=== PATIENT | male | born 1965 | race Caucasian/White ===

== ENCOUNTER 2022-05-31 14:25 | Emergency (ER) | payer OTHER ==
[2022-05-31 16:26] LABS: Absolute Lymphocytes (CBC) 0.5 K/uL (0.7-4.9); Hematocrit 42.7 % (39.6-49.0); Lymphocytes % 12.9 % (15.3-44.8); MCV 91.3 fL (80-100); MPV 8.1 fL (7.6-11.3); RBC Red Blood Cell Count 4.68 M/uL (4.33-5.43)
--- NOTE | 2022-05-31 16:54 | RAD REPORT ---
EXAM DESCRIPTION: RAD - Chest Pa And Lat (2 Views) - 05/31/2022 4:43 pm CLINICAL HISTORY: COUGH Chest pain. COMPARISON: No comparisons FINDINGS: The lungs are clear. The heart is normal in size. No displaced fractures. Tracheostomy tub e in expected positioning. IMPRESSION: No acute or concerning finding suspected.
[2022-05-31 16:55] LABS: ALT/SGPT 71 U/L (12-78); AST/SGOT 44 U/L (15-37); Albumin 3.7 g/dL (3.4-5.0); Alkaline Phosphatase 81 U/L (45-117); BUN Blood Urea Nitrogen 24 mg/dL (7-18); Bicarbonate 24 mmol/L (21-32); Bilirubin Total 0.3 mg/dL (0.2-1.0); Glomerular Filtration Rate 64 ml/min (=/>90); Glucose Level 104 mg/dL (74-106); Magnesium 2.2 mg/dL (1.8-2.4); Potassium 3.9 mmol/L (3.5-5.1); Protein, Total 7.9 g/dL (6.4-8.2); Sodium Level 137 mmol/L (136-145)
[2022-05-31 17:00] LABS: Bilirubin Direct < 0.1 mg/dL (0-0.2)
--- NOTE | 2022-05-31 18:12 | ER ---
Nurse's Notes [facility] Name: Washington Rose Age: 56 yrs Sex: Male : 1965 Arrival Date: 05/31/2022 Time: 14:26 Bed 18 Private MD: Diagnosis: SARS-associated coronavirus as the cause of diseases classified elsewhere;Lower abdominal pain, unspecified Presentation: 05/31 14:51 Chief complaint: Spouse and/or significant other states: been running fever , hasn't iw felt good , has a tracheostomy and chronic cough, but the cough is worse, symptoms started 2 days ago , has hx of laryngeal cancer and has a spot on his lung, has been treated with radiation. Coronavirus screen: Client presents with at least one sign or symptom that may indicate coronavirus-19. Ebola Screen: Patient negative for fever greater than or equal to 101.5 degrees Fahrenheit, and additional compatible Ebola Virus Disease symptoms Patient denies exposure to infectious person. Patient denies travel to an Ebola-affected area in the 21 days before illness onset. No symptoms or risks identified at this time. Initial Sepsis Screen: Does the patient meet any 2 criteria? RR > 20 per min. HR > 90 bpm. Does the patient have a suspected source of infection?. Risk Assessment: Do you want to hurt yourself or someone else? Patient reports no desire to harm self or others. Onset of symptoms was May 29, 2022. 14:51 Method Of Arrival: Ambulatory iw 14:51 Acuity: MURTAZA 3 iw Triage Assessment: 15:00 General: Appears in no apparent distress. comfortable, Behavior is calm, cooperative, bp appropriate for age. Pain: Denies pain. EENT: TRACHEOSTOMY. Neuro: No deficits noted. Cardiovascular: No deficits noted. Respiratory: Reports cough that is. GI: No signs and/or symptoms were reported involving the gastrointestinal system. : No signs and/or symptoms were reported regarding the genitourinary system. Derm: No deficits noted. Musculoskeletal: No deficits noted. Historical: - Allergies: 14:53 No Known Allergies; iw - Home Meds: 14:53 tramadol 50 mg Oral tab twice a day [Active]; iw - PMHx: 14:53 laryngeal cancer; iw - PSHx: 14:53 tracheostomy; iw - Immunization history:: Client reports having NOT received the Covid vaccine. - Social history:: Smoking status: Patient/guardian denies using tobacco, the patient reports quitting approximately 2 years ago. Screenin:00 Abuse screen: Denies threats or abuse. Denies injuries from another. Nutritional bp screening: No deficits noted. Tuberculosis screening: No symptoms or risk factors identified. Fall Risk None identified. Assessment: 15:00 General: SEE TRIAGE NOTE. bp 17:00 Reassessment: No changes from previously documented assessment. Patient and/or family bp updated on plan of care and expected duration. Pain level reassessed. 18:23 Reassessment: PT D/C HOME AMBULATORY WITH FAMILY, DX WITH COVID. bp Vital Signs: 14:51 BP 123 / 79; Pulse 106; Resp 24 S; Temp 99.6; Pulse Ox 93% on R/A; iw 16:00 BP 124 / 74; Pulse 96; Resp 18; Pulse Ox 97% ; bp 18:00 BP 121 / 69; Pulse 89; Resp 16; Pulse Ox 97% ; bp ED Course: 14:26 Patient arrived in ED. am2 14:28 Carmelo Blandon PA is PHCP. cp 14:28 Andrez Carrington MD is Attending Physician. cp 14:53 Triage completed. iw 14:55 Arm band placed on. iw 15:00 Patient has correct armband on for positive identification. Bed in low position. Call bp light in reach. Side rails up X2. 15:23 Tay Cooper, VASYL is Primary Nurse. bp 16:45 XRAY Chest Pa And Lat (2 Views) In Process Unspecified. EDMS 18:00 No provider procedures requiring assistance completed. Patient did not have IV access bp during this emergency room visit. Administered Medications: No medications were administered Medication: 15:00 VIS not applicable for this client. bp Outcome: 18:00 Discharged to home ambulatory, with family. bp 18:00 Condition: stable 18:00 Discharge instructions given to patient, family, Instructed on discharge instructions, follow up and referral plans. medication usage, Demonstrated understanding of instructions, follow-up care, medications, Prescriptions given X 3. 18:11 Discharge ordered by . cp 18:24 Patient left the ED. bp Signatures: Dispatcher [employer] EDMI Mackenzie Cortez RN RN iw Carmelo Blandon PA PA cp Krista Julian am2 Kenneth, Tay, RN RN bp Corrections: (The following items were deleted from the chart) 14:55 14:51 BP 123 / 79; Pulse 106bpm; Resp 24bpm; Spontaneous; iw iw
--- NOTE | 2022-05-31 18:12 | EDPHYS ---
Physician Documentation [facility] Name: Washington Rose Age: 56 yrs Sex: Male : 1965 Arrival Date: 05/31/2022 Time: 14:26 Bed 18 Private MD: ED Physician Andrez Carrington HPI: 05/31 15:20 This 56 yrs old Male presents to ER via Ambulatory with complaints of Fever. cp 15:20 The patient reports fever, not measured (subjective). cp 15:20 Onset: The symptoms/episode began/occurred yesterday. Associated signs and symptoms: cp Pertinent positives: abdominal pain, cough, Pertinent negatives: diarrhea, vomiting. Severity of symptoms: in the emergency department the symptoms are unchanged despite home interventions. 15:20 Patient with history of laryngeal cancer and reports recently informed about concern cp for lung mass. Not currently receiving chemo and/or radiation treatment. Historical: - Allergies: 14:53 No Known Allergies; iw - Home Meds: 14:53 tramadol 50 mg Oral tab twice a day [Active]; iw - PMHx: 14:53 laryngeal cancer; iw - PSHx: 14:53 tracheostomy; iw - Immunization history:: Client reports having NOT received the Covid vaccine. - Social history:: Smoking status: Patient/guardian denies using tobacco, the patient reports quitting approximately 2 years ago. ROS: 15:25 Constitutional: Positive for body aches, Negative for fever, poor PO intake. cp 15:25 Eyes: Negative for injury, pain, redness, and discharge. cp 15:25 ENT: Negative for ear pain, difficulty swallowing, difficulty handling secretions. 15:25 Cardiovascular: Negative for chest pain, palpitations. 15:25 Respiratory: Positive for cough, shortness of breath, Negative for wheezing. 15:25 Abdomen/GI: Positive for abdominal pain, nausea, Negative for vomiting, diarrhea, constipation. 15:25 : Negative for urinary symptoms. 15:25 Neuro: Negative for altered mental status, headache, weakness. 15:25 All other systems are negative. Exam: 15:30 Constitutional: The patient appears in no acute distress, alert, awake, cp non-diaphoretic, non-toxic, well developed, well nourished, obviously ill. 15:30 Head/Face: Normocephalic, atraumatic. cp 15:30 Eyes: Periorbital structures: appear normal, Conjunctiva: normal, no exudate, no injection, Sclera: no appreciated abnormality, Lids and lashes: appear normal, bilaterally. 15:30 ENT: External ear(s): are unremarkable, Ear canal(s): are normal, clear, TM's: dullness, bilaterally, Nose: is normal, Mouth: Lips: dry, Oral mucosa: moist, Posterior pharynx: Airway: normal, no evidence of obstruction. 15:30 Neck: Trachea: tracheostomy in place. ROM/movement: is normal, is supple, without pain, no range of motions limitations, no meningismus. 15:30 Chest/axilla: Inspection: normal, Palpation: is normal, no crepitus, no tenderness. 15:30 Cardiovascular: Rate: tachycardic, Rhythm: regular, Edema: is not appreciated, JVD: is not appreciated. 15:30 Respiratory: the patient does not display signs of respiratory distress, Respirations: normal, no use of accessory muscles, no retractions, Breath sounds: are clear throughout, no decreased breath sounds, no stridor, no wheezing. 15:30 Abdomen/GI: Inspection: obese Bowel sounds: active, all quadrants, Palpation: soft, in all quadrants, mild abdominal tenderness, in the right lower quadrant and left lower quadrant, rebound tenderness, is not appreciated, involuntary guarding, is not appreciated. 15:30 Back: pain, is absent, ROM is normal. 15:30 Skin: cellulitis, is not appreciated, no rash present. 15:30 Neuro: Orientation: to person, place \\T\\ time. Mentation: is normal, Motor: moves all fours, strength is normal, Sensation: is normal. 15:45 ECG was reviewed by the Attending Physician. Vital Signs: 14:51 BP 123 / 79; Pulse 106; Resp 24 S; Temp 99.6; Pulse Ox 93% on R/A; iw 16:00 BP 124 / 74; Pulse 96; Resp 18; Pulse Ox 97% ; bp 18:00 BP 121 / 69; Pulse 89; Resp 16; Pulse Ox 97% ; bp MDM: 15:28 Patient medically screened. cp 18:06 Data reviewed: vital signs, nurses notes, lab test result(s), radiologic studies, plain cp films. Refusal of service: The patient/guardian displays adequate decision making capability and despite a detailed discussion of alternatives, benefits, risks, and consequences refuses: CT Scan. ED course: Patient declines any further testing at this time and requests discharge. Patient appears non-toxic and no signs of respiratory distress. 05/31 15:17 Order name: COVID-19 SARS RT PCR (Document "Date of Onset" if Symptomatic); Complete cp Time: 18:08 05/31 18:10 Interpretation: Reviewed. 05/31 15:17 Order name: Influenza Screen (a \\T\\ B); Complete Time: 16:58 05/31 17:42 Interpretation: Reviewed. 05/31 15:17 Order name: Strep; Complete Time: 16:58 05/31 15:17 Order name: Basic Metabolic Panel; Complete Time: 17:42 05/31 17:42 Interpretation: Normal except: BUN 24; GFR 64. 05/31 15:17 Order name: CBC with Diff; Complete Time: 16:58 05/31 16:59 Interpretation: Normal except: WBC 4.0; LYM% 12.9; MN% 21.4; LYMA 0.5. 05/31 15:17 Order name: LFT's; Complete Time: 17:42 05/31 17:42 Interpretation: Normal except: AST 44; GLOB 4.2; A/G 0.9. 05/31 15:17 Order name: XRAY Chest Pa And Lat (2 Views); Complete Time: 16:58 05/31 15:17 Order name: Magnesium; Complete Time: 17:42 05/31 17:43 Interpretation: Reviewed. 05/31 15:17 Order name: Procalcitonin; Complete Time: 17:42 05/31 17:42 Interpretation: Reviewed. 05/31 15:17 Order name: Blood Culture Adult (2) cp 05/31 15:17 Order name: Lactate; Complete Time: 16:58 05/31 16:38 Order name: Throat Culture EDWA 05/31 15:17 Order name: EKG; Complete Time: 15:19 05/31 15:17 Order name: Cardiac monitoring; Complete Time: 16:04 05/31 15:17 Order name: EKG - Nurse/Tech; Complete Time: 16:04 05/31 15:17 Order name: Labs collected and sent; Complete Time: 16:04 cp 05/31 15:17 Order name: O2 Per Protocol; Complete Time: 16:04 cp 05/31 15:17 Order name: O2 Sat Monitoring; Complete Time: 15:28 cp EC:45 Rate is 96 beats/min. Rhythm is regular. SD interval is normal. QRS interval is normal. cp QT interval is normal. T waves are Inverted in lead aVR. Interpreted by me. Reviewed by me. Administered Medications: No medications were administered Disposition: 06/01 15:50 Co-signature as Attending Physician, Carmelo LAUGHLIN. [email or web address] Disposition Summary: 05/31/22 18:11 Discharge Ordered Location: Home cp Problem: new cp Symptoms: are unchanged cp Condition: Stable cp Diagnosis - SARS-associated coronavirus as the cause of diseases classified elsewhere cp - Lower abdominal pain, unspecified cp Followup: cp - With: Private Physician - When: 1 - 2 days - Reason: Worsening of condition Discharge Instructions: - Discharge Summary Sheet cp - Abdominal Pain, Adult cp - Aspirin and Your Heart cp - COVID-19 cp - COVID-19: What Your Test Results Mean [place] [facility] cp - Things to Know about the COVID-19 Pandemic - [facility] [place] cp - 10 Things You Can Do to Manage Your COVID-19 Symptoms at Home - [facility] [place] cp - COVID-19: Quarantine vs. Isolation - [facility] [place] cp - Prevent the Spread of COVID-19 if You Are Sick - [facility] [place] 2[place] cp Forms: - Medication Reconciliation Form cp - Thank You Letter cp - Antibiotic Education cp - Prescription Opioid Use cp Prescriptions: - Bromfed DM 2-30-10 mg/5 mL Oral syrup - take 10 milliliter by ORAL route every 6 hours; 180 milliliter; Refills: 0, cp Product Selection Permitted - PAXLOVID - take 3 tablet by ORAL route 2 times per day for 5 days; 30 tablet; Refills: 0, cp Product Selection Permitted - Zithromax Z-Dom 250 mg Oral Tablet - take 1 tablet by ORAL route as directed for 5 days Day 1 - take two (2) tablets cp one time. Day 2, 3, 4 , 5 take one (1) tablet once daily.; 6 tablet; Refills: 0, Product Selection Permitted Signatures: Dispatcher [employer] EDMackenzie Glover RN RN iw Page, Corey, PA PA cp Rosillo, Jose, MD MD [id number] Corrections: (The following items were deleted from the chart) 05/31 18:10 17:00 Abdomen Pelvis W Con+CT.RAD.BRZ ordered. EDMS EDMS
[2022-05-31 18:31] VITALS: TEMP 99.6
[2022-05-31 18:32] VITALS: O2SAT 97
[2022-05-31 18:35] VITALS: BP 121/69
--- NOTE | 2022-06-02 09:05 | EKG ---
Test Date: 2022-05-31 Test Time: 15:40:55 Aluminum Can Collector: KAVYA MEASUREMENT RESULTS: Intervals: Rate: 96 OH: 134 QRSD: 78 QT: 340 QTc: 429 [place]: P: 60 OH: 134 QRS: 38 T: 38 INTERPRETIVE STATEMENTS: Normal sinus rhythm Cannot rule out Anterior infarct, age undetermined Abnormal ECG No previous ECG available for comparison Electronically Signed On 06-02-22 09:03:08 CDT by Hermes Staley
== END 2022-05-31 18:24 | disposition home or self-care (01) ==
LOC: ER 14:25
DX: U07.1 COVID-19 (principal); R10.30 Lower abdominal pain, unspecified; Z85.21 Personal history of malignant neoplasm of larynx
CPT/HCPCS: 93005; 87040 ×2; 87070; 85025; 80048; 36415; 83735; 80076; 87081; 83605; 84145; 87804 ×2; 71046; 99283; U0003

== ENCOUNTER 2022-06-06 10:19 | Emergency (ER) | payer OTHER ==
[2022-06-06 11:30] LABS: Absolute Lymphocytes (CBC) 2.4 K/uL (0.7-4.9); Hematocrit 35.9 % (39.6-49.0); Lymphocytes % 30.2 % (15.3-44.8); MCV 84.5 fL (80-100); MPV 9.9 fL (7.6-11.3); RBC Red Blood Cell Count 4.25 M/uL (4.33-5.43)
[2022-06-06 11:43] LABS: Albumin 3.6 g/dL (3.4-5.0); Bilirubin Total 0.6 mg/dL (0.2-1.0); Potassium 4.2 mmol/L (3.5-5.1); Protein, Total 7.7 g/dL (6.4-8.2)
--- NOTE | 2022-06-06 12:31 | RAD REPORT ---
EXAM DESCRIPTION: CTAbdomen Pelvis W Contrast - 06/06/2022 12:12 pm CLINICAL HISTORY: Abdominal pain. LUQ abdominal pain COMPARISON: Ct Skull/Thigh dated 02/01/2022 TECHNIQUE: Biphasic CT imaging of the abdomen and pelvis was performed with 100 ml non-ionic IV cont rast. All CT scans are performed using dose optimization technique as appropriate and may include automated exposure control or mA/KV adjustment according to patient size. FINDINGS: The lung bases are clear.Gastrostomy tube noted. The liver, spleen, pancreas, adrenal glands and kidneys are within normal limits. 5 mm stone is prese nt inferior right kidney. Small bilateral renal cysts. No bowel obstruction, free air, free fluid or abscess. Small fat containing umbilical hernia. The robyn endix is normal. No evidence of significant lymphadenopathy. No suspicious bony findings. IMPRESSION: No acute intra-abdominal or pelvic finding. Nonobstructing right renal calculus.
--- NOTE | 2022-06-06 12:48 | EDPHYS ---
Physician Documentation [facility] Name: Washington Rose Age: 56 yrs Sex: Male : 1965 Arrival Date: 06/06/2022 Time: 10:34 Bed 6 Private MD: ED Physician Akbar Welch HPI: 06/06 12:49 This 56 yrs old Male presents to ER via EMS with complaints of LUQ abdominal pain. ms3 12:49 The patient presents with abdominal pain in the left upper quadrant. Onset: The ms3 symptoms/episode began/occurred yesterday. The symptoms do not radiate. Associated signs and symptoms: Pertinent positives: nausea. The symptoms are described as nausea. Modifying factors: The symptoms are alleviated by nothing, the symptoms are aggravated by nothing. Severity of pain: At its worst the pain was moderate in the emergency department the pain is unchanged is a 4 / 10. EMS administered 4 mg Zofran enroute. Historical: - PMHx: 11:00 Laryngeal Cancer; kr3 - PSHx: 11:00 tracheostomy; g-tube; kr3 - Immunization history:: Adult Immunizations up to date. - Social history:: Smoking status: Patient/guardian denies using tobacco. ROS: 12:49 Constitutional: Negative for fever, and chills. ENT: Negative for injury, pain, and ms3 discharge, Neck: Negative for injury, pain, and swelling, Cardiovascular: Negative for chest pain, and palpitations. Respiratory: Negative for shortness of breath, cough, wheezing, and pleuritic chest pain. 12:49 Skin: Negative for injury, rash, and discoloration, Neuro: Negative for headache, weakness, numbness, tingling. Psych: Negative for depression, anxiety, suicide ideation, homicidal ideation, and hallucinations. 12:49 Abdomen/GI: Positive for abdominal pain, nausea. Exam: 12:49 Constitutional: This is a well developed, well nourished patient who is awake, alert, ms3 and in no acute distress. Head/Face: Normocephalic, atraumatic. ENT: Nares patent. No nasal discharge, no septal abnormalities noted. Tympanic membranes are normal and external auditory canals are clear. Oropharynx with no redness, swelling, or masses, exudates, or evidence of obstruction, uvula midline. Mucous membranes moist. Neck: Trachea midline, no cervical lymphadenopathy. Supple, full range of motion without nuchal rigidity, or vertebral point tenderness. No Meningismus. Chest/axilla: Normal chest wall appearance and motion. Nontender with no deformity. Cardiovascular: Regular rate and rhythm with a normal S1 and S2. No gallops, murmurs, or rubs. Normal PMI, no JVD. No pulse deficits. Respiratory: Lungs have equal breath sounds bilaterally, clear to auscultation and percussion. No rales, rhonchi or wheezes noted. No increased work of breathing, no retractions or nasal flaring. Skin: Warm, dry with normal turgor. Normal color with no rashes, no lesions, and no evidence of cellulitis. Psych: Awake, alert, with orientation to person, place and time. Behavior, mood, and affect are within normal limits. 12:49 Abdomen/GI: Inspection: PEG in LUQ, Bowel sounds: normal, Palpation: abdomen is soft and non-tender. Vital Signs: 10:40 BP 121 / 74; Pulse 88; Resp 16; Temp 97.7; Pulse Ox 99% on R/A; kr3 12:17 BP 110 / 64; Pulse 101; Resp 18; Pulse Ox 98% on R/A; kr3 13:03 BP 120 / 86; Pulse 83; Resp 17; Pulse Ox 98% ; ll1 MDM: 10:34 Patient medically screened. ms3 12:52 Differential diagnosis: gastritis, gastroesophageal reflux disease, non-specific abd ms3 pain. Data reviewed: vital signs, nurses notes, lab test result(s), radiologic studies, and as a result, I will discharge patient. Data interpreted: Pulse oximetry: on room air is 98 %. Interpretation: normal. Counseling: I had a detailed discussion with the patient and/or guardian regarding: the historical points, exam findings, and any diagnostic results supporting the discharge/admit diagnosis, lab results, radiology results, the need for outpatient follow up, to return to the emergency department if symptoms worsen or persist or if there are any questions or concerns that arise at home. ED course: On reevaluation patient symptoms improved, patient is alert and oriented x4, no apparent distress, nontoxic, ambulatory in emergency department. . 06/06 10:35 Order name: CBC with Diff; Complete Time: 11:45 ms3 07/20 10:35 Order name: CMP; Complete Time: 11:45 ms3 06/06 10:35 Order name: Lipase; Complete Time: 11:45 ms3 06/06 10:35 Order name: CT Abd/Pelvis - IV Contrast Only; Complete Time: 12:42 ms3 06/06 10:36 Order name: IV Saline Lock; Complete Time: 11:23 ms3 06/06 10:36 Order name: Labs collected and sent; Complete Time: 11:23 ms3 Administered Medications: 13:05 Not Given (given RX): Pepcid (famotidine) 20 mg PO once ll1 Disposition Summary: 06/06/22 12:47 Discharge Ordered Location: Home ms3 Condition: Stable ms3 Diagnosis - Abdominal pain, unspecified ms3 Followup: ms3 - With: Private Physician - When: 1 - 2 days - Reason: Re-evaluation by your physician Discharge Instructions: - Discharge Summary Sheet ms3 - Abdominal Pain, Adult ms3 Forms: - Medication Reconciliation Form ms3 - Thank You Letter ms3 - Antibiotic Education ms3 - Prescription Opioid Use ms3 Prescriptions: - Pepcid 20 mg Oral Tablet - take 1 tablet by ORAL route every 12 hours for 5 days; 10 tablet; Refills: 0, ms3 Product Selection Permitted Signatures: Dispatcher [employer] Akbar Floyd DO DO ms3 Gia Goodman RN RN kr3 Caitlin Amato RN ll1
--- NOTE | 2022-06-06 12:48 | ER ---
Nurse's Notes [facility] Name: Washington Rose Age: 56 yrs Sex: Male : 1965 Arrival Date: 06/06/2022 Time: 10:34 Bed 6 Private MD: Diagnosis: Abdominal pain, unspecified Presentation: 06/06 10:40 Initial Sepsis Screen: Does the patient meet any 2 criteria? No. Patient's initial kr3 sepsis screen is negative. Does the patient have a suspected source of infection? Yes: Acute abdominal pain. Risk Assessment: Do you want to hurt yourself or someone else? Patient reports no desire to harm self or others. Onset of symptoms was June 03, 2022. 10:40 Acuity: MURTAZA 3 kr3 10:54 Chief complaint: Patient states: abd pain x 3 days, N/V/D, generalized weakness. kr3 Coronavirus screen: Client denies travel out of the [place] in the last 14 days. diarrhea, fatigue, nausea, vomiting. Client reports previous positive COVID test result. Ebola Screen: Patient denies travel to an Ebola-affected area in the 21 days before illness onset. 10:54 Method Of Arrival: EMS kr3 Triage Assessment: 10:58 General: Appears in no apparent distress. comfortable, Behavior is calm, cooperative, kr3 communicates via cell phone secondary to trach.. Pain: Denies pain. GI: Reports lower abdominal pain, upper abdominal pain, diarrhea, nausea, vomiting. Historical: - PMHx: 11:00 Laryngeal Cancer; kr3 - PSHx: 11:00 tracheostomy; g-tube; kr3 - Immunization history:: Adult Immunizations up to date. - Social history:: Smoking status: Patient/guardian denies using tobacco. Screenin:04 Abuse screen: Denies threats or abuse. Nutritional screening: No deficits noted. ll1 Tuberculosis screening: No symptoms or risk factors identified. Fall Risk IV access (20 points). Total Aguirre Fall Scale indicates No Risk (0-24 pts). Assessment: 12:16 Reassessment: No changes from previously documented assessment. Patient and/or family bm7 updated on plan of care and expected duration. Pain level reassessed. 13:03 Reassessment: No changes from previously documented assessment. Patient and/or family ll1 updated on plan of care and expected duration. Pain level reassessed. Patient is alert, oriented x 3, equal unlabored respirations, skin warm/dry/pink. Vital Signs: 10:40 BP 121 / 74; Pulse 88; Resp 16; Temp 97.7; Pulse Ox 99% on R/A; kr3 12:17 BP 110 / 64; Pulse 101; Resp 18; Pulse Ox 98% on R/A; kr3 13:03 BP 120 / 86; Pulse 83; Resp 17; Pulse Ox 98% ; ll1 ED Course: 10:34 Patient arrived in ED. ms3 10:34 Akbar Welch DO is Attending Physician. ms3 10:52 Gia Goodman, RN is Primary Nurse. kr3 10:58 Triage completed. kr3 11:16 Missed attempt(s): 22 gauge in left forearm. kr3 11:18 Missed attempt(s): 22 gauge in left antecubital area. Bleeding controlled, band aid ll1 applied, catheter tip intact. 11:21 Inserted saline lock: 22 gauge in right forearm, using aseptic technique. Blood ll1 collected. 11:22 Primary Nurse role handed off by Gia Goodman, RN bd 11:26 Gia Goodman, RN is Primary Nurse. kr3 12:00 CT Abd/Pelvis - IV Contrast Only In Process Unspecified. EDMS 13:01 IV discontinued, intact, bleeding controlled, No redness/swelling at site. Pressure ll1 dressing applied. 13:03 No provider procedures requiring assistance completed. ll1 13:04 Arm band placed on. ll1 13:05 Patient has correct armband on for positive identification. Bed in low position. Call ll1 light in reach. Client placed on continuous cardiac and pulse oximetry monitoring. NIBP monitoring applied. Administered Medications: 13:05 Not Given (given RX): Pepcid (famotidine) 20 mg PO once ll1 Medication: 13:04 VIS not applicable for this client. ll1 Outcome: 12:47 Discharge ordered by . ms3 13:04 Discharged to home ambulatory. ll1 13:04 Condition: stable 13:04 Discharge instructions given to patient, Instructed on discharge instructions, follow up and referral plans. medication usage, Demonstrated understanding of instructions, follow-up care, medications, Prescriptions given X 1. 13:21 Patient left the ED. kr3 Signatures: Dispatcher [employer] EDMS Florinda Vargas Lynsay, RN RN ll1 Rebekah, Akbar, DO DO ms3 Jenna Mae, VASYL RN bm7 Mercy Prakash RN RN jg9 Gia Goodman RN RN kr3 Corrections: (The following items were deleted from the chart) 11:25 11:16 Missed attempt(s): 22 gauge in left forearm. jg9 jg9 12:17 12:14 BP 110 / 64; Pulse 101bpm; Resp 16bpm; Pulse Ox 99% RA; bm7 bm7
[2022-06-06 14:06] VITALS: TEMP 97.7
[2022-06-06 14:08] VITALS: O2SAT 98
[2022-06-06 14:10] VITALS: BP 120/86
--- OUTSIDE RECORDS SUMMARY | 2022-06-07 15:27 | XMS REPORT | Continuity of Care Document ---
:1965 Author Organization [facility] t Address [address] [place] [address] Care Team Providers Name Role Phone Verna VIZCARRA Primary Care Physician Hari Attending Clinician Unavailable Brandon DAMICO Attending Clinician Ran GÓMEZ Attending Clinician DONAVAN Attending Clinician Unavailable Joan Lynn Attending Clinician [phone] Jose Angel DAMICO Attending Clinician ROMMEL VELA Attending Clinician Unavailable Hari Admitting Clinician Unavailable DONAVAN Admitting Clinician Unavailable ROMMEL VELA Admitting Clinician Unavailable Payers Payer Name Policy Type Policy Number Effective Date Expiration Date [facility] [id number] 2021 [employer] [place] 00:00:00 (MEDICAID HMO) Problems Condition Condition Condition Status Onset Resolution Last Treating Co mments Source Name Details Category Date Date Treatment Clinician Date Lung Lung Disease Active Overview: Univer s nodule nodule 2-15 Formattin ity of 00:00: g of this [place] 00 note Medical might be Branch different from the original. 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 Social History Social Habit Start Date Stop Date Quantity Comments Source History of tobacco Cigarette Smoker University of use [facility] Cigarette 2020-10-27 2020-10-27 University of pack-years 00:00:00 00:00:00 [facility] Tobacco use and 2020-10-27 2020-10-27 Never used Universit y of exposure 00:00:00 00:00:00 [facility] Cigarettes smoked 2020-10-27 2020-10-27 Univers ity of current (pack per 00:00:00 00:00:00 ) - Reported Branch Sex Ass[birth year] Universit y of 00:00:00 00:00:00 [facility] Smoking Status Start Date Stop Date Source Former smoker 2020-10-27 00:00:00 2020-10-27 00:00:00 Universi ty of [facility] Social History 2020-06-24 03:06:02 [facility] Medications Ordered Filled Start Stop Current Ordering Indication Dosage Frequency Signature Comments Components Source Medication Medication Date Date Medication? Clinician (SIG) Name Name traMADoL 50 Yes tramadol Un donavan mg tablet 3-02 50 mg ity of 11:54: tablet TAKE 1 Medical TABLET BY Branch MOUTH TWICE DAILY NEEDED FOR PAIN traMADoL 50 Yes tramadol Un donavan mg tablet 3-02 50 mg ity of 11:54: tablet TAKE 1 Medical TABLET BY Branch MOUTH TWICE DAILY NEEDED FOR PAIN Docusate 0 No Notes: [facility]oria Sodium 50 06-24 (Same as l MG / 14:00: Senokot-S) sennosides, 00 Equiv. to RETIREMENT 8.6 MG Carolyn-Colac Oral Tablet e. Enoxaparin No Notes: Memor ia 06-24 (Same as: l 04:00: Lovenox) Iohexol No 75 mL, Memoria 06-23 Route: l 22:33: IVP, Drug Form: SOLN, Dosing Weight 72.727, kg, ONCALL, STAT, Start date: 06/23/20 17:33:00 CDT, Duration: 1 doses or times, Dose = 2.2ml/kg, Max dose = 100ml -- "To be infused by Radiology Staff ONLY" Acetaminoph No Notes: Do M emoria en 06-23 not exceed l 17:00: 4 gm/day. (Same as: Tylenol) phenylephri No Route: IV, Memoria ne (ANES) 06-23 Drug form: l 16:05: INJ, ONCE, Stop date: 06/23/20 11:05:00 CDT propofol 0 No Route: IV, Mem oria (ANES) 06-23 Drug form: l 16:00: INJ, ONCE, Stop date: 06/23/20 11:00:00 CDT Tramadol 0 No Notes: Not Mem oria 06-23 to exceed l 15:58: 400mg/day. (Same As: Ultram) glycopyrrol No Route: IV, Memoria ate (ANES) 06-23 Drug form: l 15:40: INJ, ONCE, Stop date: 06/23/20 10:40:00 CDT ceFAZolin No Route: IV, Me moria (ANES) 06-23 Drug form: l 15:40: INJ, ONCE, Stop date: 06/23/20 10:40:00 CDT midazolam 2019-0 No Route: IV, Me moria (ANES) 06-23 Drug form: l 15:35: SOLN, ONCE, Stop date: 06/23/20 10:35:00 CDT fentaNYL 2020-0 No Route: IV, Mem oria (ANES) 06-23 Drug form: l 15:35: INJ, ONCE, Stop date: 06/23/20 10:35:00 CDT dexmedetomi 2020-0 No Route: IV, Memoria dine (ANES) 06-23 Drug form: l 15:35: INJ, ONCE, Stop date: 06/23/20 10:35:00 CDT metoprolol 2019-0 No Route: IV, M emoria (ANES) 06-23 Drug form: l 15:35: INJ, ONCE, Stop date: 06/23/20 10:35:00 CDT Lactated 2019-0 No Route: IV, Mem oria Ringers 06-23 Total l Injection 14:45: Volume: Cait nn IV (ANE) 1,000, 1000 mL Start date: 06/23/20 9:45:00 CDT, Stop date: 06/23/20 10:45:00 CDT Iohexol 2019-0 No 100 mL, Memoria 06-23 Route: l 11:12: IVP, Drug Form: SOLN, Dosing Weight 72.727, kg, ONCALL, STAT, Start date: 06/23/20 6:12:00 CDT, Duration: 1 doses or times, Dose = 2.2ml/kg, Max dose = 100ml -- "To be infused by Radiology Staff ONLY" tramadol 50 tramadol 50 No tramadol [place] mg tablet mg tablet 50 mg da TAKE 1 TAKE 1 tablet Medical TABLET BY TABLET BY TAKE 1 Rukhsana up MOUTH TWICE MOUTH TWICE TABLET BY DAILY DAILY MOUTH NEEDED NEEDED TWICE DAILY NEEDED Vital Signs Vital Name Observation Time Observation Value Comments Source BP Diastolic 2022-03-21 00:00:00 85 mm[Hg] [facility] Height 2022-03-21 00:00:00 67 [in_i] [facility] BMI (Body Mass 2022-03-21 00:00:00 28.4 kg/m2 [facility] Medical Index) Group BP Systolic 2022-03-21 00:00:00 126 mm[Hg] [facility] Body Weight 2022-03-21 00:00:00 181.2 [lb_av] [facility] BP Diastolic 2021-10-31 00:00:00 80 mm[Hg] [facility] Height 2021-10-31 00:00:00 67 [in_i] [facility] BMI (Body Mass 2021-10-31 00:00:00 23.6 kg/m2 [facility] Medical Index) Group BP Systolic 2021-10-31 00:00:00 117 mm[Hg] [facility] Body Weight 2021-10-31 00:00:00 151 [lb_av] [facility] BP Diastolic 2021-09-14 00:00:00 74 mm[Hg] [facility] Height 2021-09-14 00:00:00 67 [in_i] [facility] BMI (Body Mass 2021-09-14 00:00:00 22 kg/m2 [facility] Medical Index) Group BP Systolic 2021-09-14 00:00:00 109 mm[Hg] [facility] Body Weight 2021-09-14 00:00:00 140.6 [lb_av] [facility] BP Diastolic 2021-07-25 00:00:00 76 mm[Hg] [facility] Height 2021-07-25 00:00:00 67 [in_i] [facility] BMI (Body Mass 2021-07-25 00:00:00 20 kg/m2 [facility] Medical Index) Group BP Systolic 2021-07-25 00:00:00 119 mm[Hg] [facility] Body Weight 2021-07-25 00:00:00 127.7 [lb_av] [facility] Height 2021 00:00:00 67 [in_i] [facility] BMI (Body Mass 2021 00:00:00 19.8 kg/m2 [facility] Medical Index) Group BP Systolic 2021 00:00:00 104 mm[Hg] [facility] Body Weight 2021 00:00:00 126.3 [lb_av] [facility] BP Diastolic 2021 00:00:00 70 mm[Hg] [facility] Systolic (mm Hg) 2020-06-29 17:54:00 Ruddy rial [facility] Diastolic (mm Hg) 2020-06-29 17:54:00 Mem [facility] Heart Rate 2020-06-29 17:54:00 [facility] Temperature Oral (F) 2020-06-29 17:54:00 98.3 F [facility] Respitory Rate 2020-06-29 17:54:00 Memori al [place] Diastolic (mm Hg) 2020-06-29 14:09:00 Mem orial [place] Heart Rate 2020-06-29 14:09:00 [facility] Temperature Oral (F) 2020-06-29 14:09:00 98.7 F [facility] Respitory Rate 2020-06-29 14:09:00 Memori al [place] Systolic (mm Hg) 2020-06-29 14:09:00 Ruddy rial [place] Respitory Rate 2020-06-29 13:55:00 Memori al [place] Temperature Oral (F) 2020-06-29 09:12:00 98.2 F [facility] [place] Systolic (mm Hg) 2020-06-29 09:12:00 Ruddy rial [place] Diastolic (mm Hg) 2020-06-29 09:12:00 Mem orial [place] Respitory Rate 2020-06-27 07:00:00 Memori al [place] Systolic (mm Hg) 2020-06-27 07:00:00 Ruddy rial [place] Diastolic (mm Hg) 2020-06-27 07:00:00 Mem orial [place] Respitory Rate 2020-06-27 06:00:00 Memori al [place] Systolic (mm Hg) 2020-06-27 06:00:00 Ruddy rial [place] Diastolic (mm Hg) 2020-06-27 06:00:00 Mem orial [place] Respitory Rate 2020-06-27 05:00:00 Memori al [place] Systolic (mm Hg) 2020-06-27 05:00:00 Ruddy rial [place] Diastolic (mm Hg) 2020-06-27 05:00:00 Mem orial [place] Temperature Oral (F) 2020-06-26 13:00:00 97 F [facility] [place] Temperature Oral (F) 2020-06-24 13:11:00 97.5 F Tonya [place] Height 2020-06-23 08:26:00 170.18 cm [facility] [place] BMI Calculated 2020-06-23 08:26:00 Abdiel Jolly Weight 2020-06-23 08:26:00 [facility] Heart Rate 2020-06-23 08:26:00 [facility] [place] Temperature Oral (F) 2020-06-23 08:26:00 98.3 F [facility] Procedures Procedure Date / Time Performing Clinician Source Performed [facility]ion [facility] Percutaneous Endoscopic [facility] Encounters Start End Encounter Admission Attending Care Care Encounter Source Date/Time Date/Time Type Type Clinicians Facility Department ID 2022-03-21 2022-03-21 [place] [id number] [facility] 10:12:00 10:12:00 0504 Medical Group 2022-03-21 2022-03-21 SHEN Johnson [place] - [id number] [facility] 00:00:00 00:00:00 MD: Saúl Ware [facility] [address], [facility], Otolaryngol [facility] [address] , Ph. 2022-03-02 2022-03-02 Telephone Brandon [facility] [id number] Univers 00:00:00 00:00:00 Sarah HEALTH [id number] [id number] [id number] [facility] 144 Branch 2022-03-02 2022-03-02 Telephone MIKE Tong [id number] Univers 00:00:00 00:00:00 Shiwan Y HEALTH [id number] i ty [place] CL[id number] [id number] [facility] omar 083 Branch 2021-10-31 2021-10-31 Outpatient Alexander_Hoa GOTTI [id number] [place] 03:52:00 03:52:00 1214 Medical Group 2021-10-31 2021-10-31 Outpatient Yan_W MMG MMG [id number] [place] 03:52:00 03:52:00 1215 [facility] 2021-10-31 2021-10-31 Outpatient Yan_W MMG MMG [id number] [place] 03:52:00 03:52:00 1217 [facility] 2021-10-31 2021-10-31 Outpatient Yan_W MMG MMG [id number] [place] 03:52:00 03:52:00 0427 [facility] 2021-10-31 2021-10-31 SHEN Johnson [place] - [id number] [facility] 00:00:00 00:00:00 MD: Saúl [facility] Suite [facility], [facility], Otolaryngol [place] [address] , Ph. 2021-09-14 2021-09-14 [place] [id number] [place] 09:51:00 09:51:00 1028 Medical Group 2021-09-14 2021-09-14 SHEN Johnson [place] - [id number] [facility] 00:00:00 00:00:00 : Saúl [facility] [address] [facility], [facility], [place]aryng[place] [address] , Ph. 2021-07-25 2021-07-25 Outpatient Yan_W MM DCG [id number] [place] 04:36:00 04:36:00 0907 [facility] 2021-07-25 2021-07-25 Outpatient Yan_W MM MMG [id number] [place] 04:36:00 04:36:00 0909 [facility] 2021-07-25 2021-07-25 SHEN Johnson [place] - [id number] [facility] 00:00:00 00:00:00 : Saúl [facility] [address] , Ph. 2021 2021 Outpatient Yan_W [facility] [id number] [place] 03:48:00 03:48:00 0830 [facility] 2021 2021 Outpatient Yan_W [facility] [id number] [place] 03:48:00 03:48:00 0831 [facility] 2021 2021 Will Munoz MMG [place] - [id number] [place] 00:00:00 00:00:00 : Saúl Ware [facility] [address], [facility], Otolaryngol [place] [address] , Ph. 2021-06-13 2021-06-13 Outpatient Yan_W [facility] [id number] [place] 04:38:00 04:38:00 0727 Medical [facility] 2021-02-10 2021-02-10 Outpatient KOVACEV_T [facility] [id number] [place] 04:37:00 04:37:00 0326 [facility] 2021-02-02 2021-02-02 Outpatient KOVACEV_T [facility] [id number] [place] 02:37:00 02:37:00 0318 [facility] 2021-02-02 2021-02-02 Outpatient Kosusanne, [facility] [id number] 00:00:00 00:00:00 Efren [id number] Franco [id number] 2021-02-01 2021-02-01 Outpatient KOVACEV_T [facility] [id number] [place] 06:07:00 06:07:00 0317 [facility] 2020-12-21 2020-12-21 Office ELLA Walter [id number] 12:27:55 14:01:10 Visit Reece Nicole.1.13.10 [facility] [id number] 2020-06-23 2020-06-[address] [facility] [id number] Memoria 08:26:00 22:15:00 r [facility] [place] 2020-06-23 2020-06-29 Inpatient E DANE, [facility] [address] [facility] 02:19:00 17:15:00 SAYRA Results Test Description Test Time Test Comments Results Result Sourc e Comments IMMUNOLOGY 2020-06-23 24.1 [facility] 17:48:00 [place] CHEM PANEL 2020-06-23 2.1 [facility] 17:48:00 [place] CHEM PANEL 2020-06-23 2.9 [facility] 17:48:00 [place] IMMUNOLOGY 2020-06-23 <2.9 [facility] 17:48:00 [place] IMMUNOLOGY 2020-06-23 Not Detected [facility] 12:30:00 (06/23/20 7:30 [place] AM) BLOOD BANK RESULTS 2020-06-23 Negative Memori al 09:02:00 (06/23/20 4:02 [place] AM) CHEM PANEL 2020-06-23 131 [facility] 09:02:00 [place] CHEM PANEL 2020-06-23 18 [facility] 09:02:00 [facility] CHEM PANEL 2020-06-23 1.11 Memorial 09:02:00 [facility] CHEM PANEL 2020-06-23 139 [facility] 09:02:00 [facility] CHEM PANEL 2020-06-23 4.6 Memorial 09:02:00 [facility] CHEM PANEL 2020-06-23 104 [facility] 09:02:00 [facility]rites CHEM PANEL 2020-06-23 29 Memorial 09:02:00 [place] CHEM PANEL 2020-06-23 8.7 Memorial 09:02:00 [place] CHEM PANEL 2020-06-23 3.8 Memorial 09:02:00 [place]rites CHEM PANEL 2020-06-23 17 Memorial 09:02:00 [place] CHEM PANEL 2020-06-23 13 [facility] 09:02:00 [place] CHEM PANEL 2020-06-23 10.6 Memorial 09:02:00 [place] CHEM PANEL 2020-06-23 09:02:00 Test Item Value Reference Range Interpretation Comme nts B/C Ratio (test code = B/C Ratio) 16 1 6-25 [facility] [id number] 09:02:0074[facility] PANEL 2020-06-23 09:02:007.1[facility] [id number] 09:02:0055[facility] [id number] 09:02:000.7[facility] [id number] 09:02:003.3[facility] [id number] 09:02:00 Test Item Value Reference Range Interpretation Comments A/G Ratio (test code = A/G Ratio) 1.2 1 0.7-1.6 [facility] [id number] 09:02:0012.2[facility]ann[facility]OLOGY 2020-06-23 09:02:004.63[facility] MbyhsycZSOJPFUZPF4781-35-09 09:02:0015.0[facility]orial GzzrshqPUZNIGXJPB8369-45-67 09:02:0043.0[facility]orial HgxmrstDTZTVJMOAA8297-73-27 09:02:0092.8[facility]orial QqkqqowFTQNJCDZZV7521-52-60 09:02:00 Test Item Value Reference Range Interpretation Comments MCH (test code = MCH) 32.5 pg 27.0-31.0 [facility] [id number] 09:02:0035.0[facility] 2020-06-23 09:02:0013.3[facility] ZbfflsxLIKBJXMNGG2774-27-13 09:02:37875Anjdvnfp MqjvgfkWWWZYCTDIT3196-10-87 09:02:008.0[facility] [id number] 09:02:00 Test Item Value Reference Range Interpretation Comments PT (test code = PT) 12.3 s 12.0-14.7 [facility] [id number] 09:02:00 Test Item Value Reference Range Interpretation Comments INR (test code = INR) 0.92 1 0.85-1.17 [facility] [id number] 09:02:00 Test Item Value Reference Range Interpretation Comments PTT (test code = PTT) 25.8 s 22.9-35.8 [facility] [id number] 09:02:00Normal (06/23/20 4:02 AM)[facility] [id number] 09:02:00Normal (06/23/20 4:02 AM)[facility] [place] [id number] 09:02:0095.1[facility] [id number] 09:02:00 3.9[facility] [id number] 09:02:000.6[facility]ann[facility]MATOLOGY 2020-06-23 09:02:000.4[facility] NsbfwdcFSMPHNZZHW9772-10-05 09:02:0011.6[facility]orial EgpgmgrDJMJLHJLXA8321-04-23 09:02:000.5[facility] LaicvlvGJAMFKUMTE4781-20-62 09:02:000.1[facility] [place]
== END 2022-06-06 13:21 | disposition home or self-care (01) ==
LOC: ER 10:19
DX: R10.12 Left upper quadrant pain (principal); R11.0 Nausea; Z85.21 Personal history of malignant neoplasm of larynx
CPT/HCPCS: 85025; 36415; 83690; 80053; 74177; Q9967

== ENCOUNTER 2023-05-05 14:49 | Emergency (ER) | payer OTHER ==
--- NOTE | 2023-05-05 15:12 | ER ---
Nurse's Notes [facility] Name: Washington Rose Age: 57 yrs Sex: Male : 1965 Arrival Date: 05/05/2023 Time: 14:49 Bed 6 Private MD: Diagnosis: Encounter for attention to gastrostomy Presentation: 05/05 15:07 Chief complaint: Patient states: "I have a PEG tube that Dr. Rodriguez won't change out that ss is leaking and moldy.". Coronavirus screen: Client denies travel out of the [place] in the last 14 days. Ebola Screen: Patient denies exposure to infectious person. Patient denies travel to an Ebola-affected area in the 21 days before illness onset. Initial Sepsis Screen: Does the patient meet any 2 criteria? No. Patient's initial sepsis screen is negative. Does the patient have a suspected source of infection? No. Patient's initial sepsis screen is negative. Risk Assessment: Do you want to hurt yourself or someone else? Patient reports no desire to harm self or others. Onset of symptoms is unknown. 15:07 Method Of Arrival: Ambulatory ss 15:07 Acuity: MURTAZA 4 ss Historical: - Allergies: 15:09 No Known Allergies; ss - PMHx: 15:09 Laryngeal Cancer; ss - PSHx: 15:09 G-tube; tracheostomy; ss - Immunization history:: Client reports having NOT received the Covid vaccine. - Social history:: Smoking status: Patient/guardian denies using tobacco, but has a distant history of tobacco abuse. Screenin:10 [facility] ED Fall Risk Assessment (Adult) History of falling in the last 3 months, ko1 including since admission No falls in past 3 months (0 pts) Confusion or Disorientation No (0 pts) Intoxicated or Sedated No (0 pts) Impaired Gait No (0 pts) Mobility Assist Device Used No (0 pt) Altered Elimination No (0 pt) Score/Fall Risk Level 0 - 2 = Low Risk Oriented to surroundings, Maintained a safe environment, Educated pt \\T\\ family on fall prevention, incl call for assistance when getting out of bed, Assessed \\T\\ reinforced patient's understanding of fall precautions, Provided non-skid footwear, Hourly rounding (assess needs \\T\\ fall precautionary measures) done, Used ambulatory aids as needed (educated on \\T\\ assisted with), Used gait belt as appropriate. Abuse screen: Denies threats or abuse. Denies injuries from another. Nutritional screening: No deficits noted. Nutritional screening:. Tuberculosis screening: No symptoms or risk factors identified. Assessment: 15:10 General: Appears in no apparent distress. comfortable, Behavior is calm, cooperative, ko1 appropriate for age. Pain: Denies pain. Neuro: No deficits noted. Cardiovascular: Reports. Cardiovascular: No deficits noted. Respiratory: No deficits noted. GI: Reports endo tube is leaking and moldy. : No deficits noted. EENT: No deficits noted. Derm: No deficits noted. Musculoskeletal: No deficits noted. Vital Signs: 15:07 BP 105 / 69; Pulse 64; Resp 16; Temp 98.2(TE); Pulse Ox 96% on R/A; Weight 68.04 kg; ss Height 5 ft. 7 in. ; Pain 0/10; 15:07 Body Mass Index 23.49 (68.04 kg, 170.18 cm) ss 15:07 Pain Scale: Adult ss ED Course: 14:51 Patient arrived in ED. ts1 15:01 Brittany Garcia FNP-C [facility] kb 15:01 Jack Vela MD is Attending Physician. kb 15:09 Triage completed. ss 15:09 Arm band placed on right wrist. ss 15:10 Lin Bentley, RN is Primary Nurse. ko1 15:10 Patient has correct armband on for positive identification. Bed in low position. Call ko1 light in reach. Pulse ox on. NIBP on. 15:12 No provider procedures requiring assistance completed. Patient did not have IV access ss during this emergency room visit. Administered Medications: No medications were administered Medication: 15:10 VIS not applicable for this client. ko1 Outcome: 15:11 Discharge ordered by MD. kb 15:12 Discharged to home ambulatory. ss 15:12 Condition: good 15:12 Discharge instructions given to patient, Instructed on discharge instructions, follow up and referral plans. Demonstrated understanding of instructions, follow-up care, medications. 15:13 Patient left the ED. ss Signatures: Brittany Garcia FNP-C FNP-Sandrine Castellano RN RN ss Lin Bentley, RN RN ko1 Neri, Caro, PAS PAS ts1
--- NOTE | 2023-05-05 15:12 | EDPHYS ---
Physician Documentation [facility] Name: Washington Rose Age: 57 yrs Sex: Male : 1965 Arrival Date: 05/05/2023 Time: 14:49 Bed 6 Private MD: ED Physician Jack Vela HPI: 05/05 15:21 This 57 yrs old Male presents to ER via Ambulatory with complaints of Mold on endoscopy kb tube/Leaking. 15:21 Pt reports he has had the same PEG tube in for [address] Rodriguez to change kb it multiple times because it is leaking, but he will not put a new one in. Came in today to have it changed out here. . Historical: - Allergies: 15:09 No Known Allergies; ss - PMHx: 15:09 Laryngeal Cancer; ss - PSHx: 15:09 G-tube; tracheostomy; ss - Immunization history:: Client reports having NOT received the Covid vaccine. - Social history:: Smoking status: Patient/guardian denies using tobacco, but has a distant history of tobacco abuse. ROS: 15:21 Constitutional: Negative for fever, chills, and weight loss. kb 15:21 All other systems are negative. Exam: 15:23 Constitutional: This is a well developed, well nourished patient who is awake, alert, kb and in no acute distress. Head/Face: Normocephalic, atraumatic. ENT: Moist Mucous membranes Respiratory: Respirations even and unlabored. No increased work of breathing. Talking in full sentences Abdomen/GI: Soft, non-tender. No distention Skin: Warm, dry with normal turgor. Normal color. MS/ Extremity: Pulses equal, no cyanosis. Neurovascular intact. Full, normal range of motion. Neuro: Awake and alert, GCS 15, oriented to person, place, time, and situation. Moves all extremities. Normal gait. 15:23 Abdomen/GI: PEG tube in place without surrounding errythemia, swelling, drainage. Vital Signs: 15:07 BP 105 / 69; Pulse 64; Resp 16; Temp 98.2(TE); Pulse Ox 96% on R/A; Weight 68.04 kg; ss Height 5 ft. 7 in. ; Pain 0/10; 15:07 Body Mass Index 23.49 (68.04 kg, 170.18 cm) ss 15:07 Pain Scale: Adult ss MDM: 15:01 Patient medically screened. kb 15:22 Differential Diagnosis PEG tube malfunction. Data reviewed: vital signs, nurses notes. 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 ED course: Discussed with Dr Vela. He recommends follow up outpatient for tube replacement. Does not recommend removing tube in ER to place new one. . Administered Medications: No medications were administered Disposition Summary: 05/05/23 15:11 Discharge Ordered Location: Home kb Condition: Stable kb Diagnosis - Encounter for attention to gastrostomy kb Followup: kb - With: Emergency Department - When: As needed - Reason: Worsening of condition Followup: kb - With: Private Physician - When: 2 - 3 days - Reason: Recheck today's complaints, Continuance of care, Re-evaluation by your physician Discharge Instructions: - Discharge Summary Sheet kb - PEG Tube Home Guide, [id number] kb Forms: - Medication Reconciliation Form kb - Thank You Letter kb - Antibiotic Education kb - Prescription Opioid Use kb Signatures: Brittany Garcia FNP-C FNP-Sandrine Castellano, RN RN ss
--- OUTSIDE RECORDS SUMMARY | 2023-05-05 15:25 | XMS REPORT | Continuity of Care Document ---
:1965 Author Organization [facility] t Address [address] [place] [address] [address] [place] [address] Care Team Providers Name Role Phone Lashonda Funez Primary Care Physician FRANKLIN TABARES Attending Clinician Unavailable FRANKLIN TABARES Attending Clinician Unavailable JANETTE HACKETT Attending Clinician Unavailable Sabino FALLON, Britany Attending Clinician Unavailable Umair Jin MD Attending Clinician Doctor Unassigned, [place] Attending Clinician Unavailable HALIMA COVARRUBIAS Attending Clinician Unavailable Janette Hackett MD Attending Clinician UMAIR JIN Attending Clinician Unavailable AmadouW Attending Clinician Unavailable Franklin Tabares DO Attending Clinician Garrison Herbert MD Attending Clinician NHAN ZAMORA Attending Clinician Unavailable Nhan Zamora MD Attending Clinician JULIO OROZCO Attending Clinician Unavailable JULIO OROZCO Attending Clinician Unavailable Homar CUNNINGHAM, Grace Attending Clinician Felipe Hawley MD Attending Clinician [phone] Owen Garza PA-C Attending Clinician Lonnie Walker Attending Clinician FELIPE HAWLEY Attending Clinician Unavailable Norman Paez MD Attending Clinician Alem RN, Nadine Meza Attending Clinician Taylor DAMICO, Song Wade Attending Clinician SONG MADSEN Attending Clinician Unavailable Pob, [facility] Main Attending Clinician Unavailable Anitra Tomlin Attending Clinician ANITRA WAHL Attending Clinician Unavailable [place] Attending Clinician Unavailable Terry DIAZ, Cristine Copeland Attending Clinician Unavailable Marci PHD, Halima Gomez Attending Clinician Vls-Lab Attending Clinician Unavailable Wong DAMICO, Hiwot Attending Clinician DONAVAN Attending Clinician Unavailable Efren Lynn Attending Clinician [phone] Elena Marte Attending Clinician Reece Moses MD Attending Clinician REECE MOSES Attending Clinician Unavailable REECE MOSES Attending Clinician Unavailable Only, [facility] Test Attending Clinician Unavailable Swallows, Gal Speech Modified Barium Attending Clinician Norma vailable Lashonda Funez Attending Clinician LASHONDA TRIVEDI Attending Clinician Unavailable Severino Vela Attending Clinician SEVERINO VELA Attending Clinician Unavailable FRANKLIN TABARES Admitting Clinician Unavailable JANETTE HACKETT Admitting Clinician Unavailable Yan_W Admitting Clinician Unavailable Franklin Tabares DO Admitting Clinician Song Madsen MD Admitting Clinician SONG MADSEN Admitting Clinician Unavailable ANITRA WAHL Admitting Clinician Unavailable Janette Hackett MD Admitting Clinician DONAVAN Admitting Clinician Unavailable Severino Vela Admitting Clinician SEVERINO VELA Admitting Clinician Unavailable Kalpesh Bonilla Admitting Clinician Payers Payer Name Policy Type Policy Number Effective Date Expiration Date [facility] [id number] 2021 00:00:00 [facility] [id number] 2021 [place] (MEDICAID HMO) [facility] [id number] 2022 [place]00 STAR+PLUS (MEDICAID REPLACEMENT - HMO) Problems Condition Condition Condition Status Onset Resolution Last Treating Co mments Source Name Details Category Date Date Treatment Clinician Date Lung Lung Disease Active Overview: Univer s nodule nodule 2-15 Formattin ity of 00:00: g of this [place] note Medical might be Branch different from the original. 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 2-10 ity of 00:00: [place] [facility] LARYNX LARYNX Diagnosis Active 2019-2020-10-04 Me moria CANCER CANCER 06-23 12:24:00 l SORE SORE 00:00: [place] THROAT THROAT 00 Active 06/23/2020 [facility] LARYNX LARYNX Diagnosis Active 2019-0 2020-06-23 Me moria CANCER CANCER 06-23 05:28:00 l Active 00:00: [place] 06/23/2020 00 [facility] 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 [facility] Dysphagia Dysphagia Problem Active [facility] Allergies, Adverse Reactions, Alerts Allergy Allergy Status Severity Reaction(s) Onset Inactive Treating Comm ents Source Name Type Date Date Clinician NO KNOWN Drug Active Univers ALLERGIE Class ity of S [facility] No Known No Known Active Memori a Medicati Medicati l on on [place] muller s Social History Social Habit Start Date Stop Date Quantity Comments Source History of tobacco Cigarette Smoker University of use [facility] Cigarette 2023-04-22 2023-04-22 University of pack-years 00:00:00 00:00:00 [facility] Tobacco use and 2023-04-22 2023-04-22 Smokeless Universit y of exposure 00:00:00 00:00:00 tobacco non-user [facility] bandaril Branch Cigarettes smoked 2023-04-22 2023-04-22 Univers ity of current (pack per 00:00:00 00:00:00 [facility] ) - Reported Branch Sex [birth year] At [birth year] Universit y of 00:00:00 00:00:00 [facility] Smoking Status Start Date Stop Date Source Heavy Tobacco Smoker [place] [facility] Ex-smoker 2023-04-22 00:00:00 2023-04-22 00:00:00 [facility] Social History 2020-06-24 03:06:02 [facility] Medications Ordered Filled Start Stop Current Ordering Indication Dosage Frequency Signature Comments Components Source Medication Medication Date Date Medication? Clinician (SIG) Name Name traMADoL 50 Yes tramadol [place] mg tablet 6-05 50 mg ity of 08:07: tablet [place] [id number] TAKE 1 Medical TABLET BY Branch MOUTH TWICE DAILY NEEDED FOR PAIN traMADoL 50 Yes tramadol Un [place] mg tablet 6-05 50 mg ity of 08:07: tablet [place] 42 TAKE 1 Medical TABLET BY Branch MOUTH TWICE DAILY NEEDED FOR PAIN traMADoL 50 Yes tramadol [place] mg tablet 6-05 50 mg ity of 08:07: tablet [place] 42 TAKE 1 Medical TABLET BY Branch MOUTH TWICE DAILY NEEDED FOR PAIN traMADoL 50 Yes tramadol Un [place] mg tablet 6-05 50 mg ity of 08:07: tablet [place] 42 TAKE 1 Medical TABLET BY Branch MOUTH TWICE DAILY NEEDED FOR PAIN traMADoL 50 Yes tramadol [place] mg tablet 6-05 50 mg ity of 08:07: tablet [place] 42 TAKE 1 Medical TABLET BY Branch MOUTH TWICE DAILY NEEDED FOR PAIN traMADoL 50 Yes tramadol [place] mg tablet 6-05 50 mg ity of 08:07: tablet [place] 42 TAKE 1 Medical TABLET BY Branch MOUTH TWICE DAILY NEEDED FOR PAIN traMADoL 50 Yes tramadol [place] mg tablet 6-05 50 mg ity of 08:07: tablet [place] 42 TAKE 1 Medical TABLET BY Branch MOUTH TWICE DAILY NEEDED FOR PAIN traMADoL 50 2022-0 Yes tramadol Un [place] mg tablet 6-05 50 mg ity of 08:07: tablet [place] 42 TAKE 1 Medical TABLET BY Branch MOUTH TWICE DAILY NEEDED FOR PAIN traMADoL 50 2022-0 Yes tramadol Un [place] mg tablet 6-05 50 mg ity of 08:07: tablet [place] 42 TAKE 1 Medical TABLET BY Branch MOUTH TWICE DAILY NEEDED FOR PAIN traMADoL 50 2022-0 Yes tramadol Un [place] mg tablet 6-05 50 mg ity of 08:07: tablet [place] 42 TAKE 1 Medical TABLET BY Branch MOUTH TWICE DAILY NEEDED FOR PAIN traMADoL 50 2022-0 Yes tramadol Un [place] mg tablet 6-05 50 mg ity of 08:07: tablet [place] 42 TAKE 1 Medical TABLET BY Branch MOUTH TWICE DAILY NEEDED FOR PAIN traMADoL 50 2022-0 Yes tramadol Un [place] mg tablet 6-05 50 mg ity of 08:07: tablet [place] 42 TAKE 1 Medical TABLET BY Branch MOUTH TWICE DAILY NEEDED FOR PAIN levothyroxi 0 Yes levothyrox Univers ne 88 mcg 6-02 ine 88 mcg ity of tablet 00:00: tablet [facility] levothyroxi 0 Yes levothyrox Univers ne 88 mcg 6-02 ine 88 mcg ity of tablet 00:00: tablet [facility] levothyroxi 2022-0 Yes levothyrox Univers ne 88 mcg 6-02 ine 88 mcg ity of tablet 00:00: tablet [facility] levothyroxi 0 Yes levothyrox Univers ne 88 mcg 6-02 ine 88 mcg ity of tablet 00:00: tablet [facility] levothyroxi 0 Yes levothyrox Univers ne 88 mcg 6-02 ine 88 mcg ity of tablet 00:00: tablet [facility] levothyroxi 0 Yes levothyrox Univers ne 88 mcg 6-02 ine 88 mcg ity of tablet 00:00: tablet [facility] levothyroxi 0 Yes levothyrox Univers ne 88 mcg 6-02 ine 88 mcg ity of tablet 00:00: tablet [place] [facility] levothyroxi 0 Yes levothyrox Univers ne 88 mcg 6-02 ine 88 mcg ity of tablet 00:00: tablet [facility] levothyroxi 2022-0 Yes levothyrox Univers ne 88 mcg - ine 88 mcg ity of tablet 00:00: tablet Medical Branch levothyroxi 2022-0 Yes levothyrox Univers ne 88 mcg - ine 88 mcg ity of tablet 00:00: tablet Medical Branch levothyroxi 2022-0 Yes levothyrox Univers ne 88 mcg - ine 88 mcg ity of tablet 00:00: tablet Medical Branch levothyroxi 2022-0 Yes levothyrox Univers ne 88 mcg - ine 88 mcg ity of tablet 00:00: tablet [facility] famotidine 2022-0 Yes famotidine U nivers 20 mg 5-30 20 mg ity of tablet 00:00: tablet [facility] famotidine 2022-0 Yes famotidine U nivers 20 mg 5-30 20 mg ity of tablet 00:00: tablet [facility] famotidine 2022-0 Yes famotidine U nivers 20 mg 5-30 20 mg ity of tablet 00:00: tablet [facility] famotidine 2022-0 Yes famotidine U nivers 20 mg 5-30 20 mg ity of tablet 00:00: tablet [facility] famotidine 2022-0 Yes famotidine U nivers 20 mg 5-30 20 mg ity of tablet 00:00: tablet [facility] famotidine 2022-0 Yes famotidine U nivers 20 mg 5-30 20 mg ity of tablet 00:00: tablet [facility] famotidine 2022-0 Yes famotidine U nivers 20 mg 5-30 20 mg ity of tablet 00:00: tablet [facility] famotidine 2022-0 Yes famotidine U nivers 20 mg 5-30 20 mg ity of tablet 00:00: tablet [facility] famotidine 2022-0 Yes famotidine U nivers 20 mg 5-30 20 mg ity of tablet 00:00: tablet [facility] famotidine 2022-0 Yes famotidine U nivers 20 mg 5-30 20 mg ity of tablet 00:00: tablet [place] [facility] famotidine 2023-0 Yes famotidine U nivers 20 mg 5-30 20 mg ity of tablet 00:00: tablet Medical Branch famotidine 2022-0 Yes famotidine U nivers 20 mg 5-30 20 mg ity of tablet 00:00: tablet Medical Branch rosuvastati 2022-0 Yes rosuvastat Univers n 10 mg 3-09 in 10 mg ity of tablet 00:00: tablet Medical Branch rosuvastati 2022-0 Yes rosuvastat Univers n 10 mg 3-09 in 10 mg ity of tablet 00:00: tablet Medical Branch rosuvastati 2022-0 Yes rosuvastat Univers n 10 mg 3-09 in 10 mg ity of tablet 00:00: tablet Medical Branch rosuvastati 2022-0 Yes rosuvastat Univers n 10 mg 3-09 in 10 mg ity of tablet 00:00: tablet Medical Branch rosuvastati 2022-0 Yes rosuvastat Univers n 10 mg 3-09 in 10 mg ity of tablet 00:00: tablet Medical Branch rosuvastati 2022-0 Yes rosuvastat Univers n 10 mg 3-09 in 10 mg ity of tablet 00:00: tablet [facility] rosuvastati 2022-0 Yes rosuvastat Univers n 10 mg 3-09 in 10 mg ity of tablet 00:00: tablet Medical Branch rosuvastati 2022-0 Yes rosuvastat Univers n 10 mg 3-09 in 10 mg ity of tablet 00:00: tablet Medical Branch rosuvastati 2022-0 Yes rosuvastat Univers n 10 mg 3-09 in 10 mg ity of tablet 00:00: tablet [facility] rosuvastati 2022-0 Yes rosuvastat Univers n 10 mg 3-09 in 10 mg ity of tablet 00:00: tablet [facility] rosuvastati 2022-0 Yes rosuvastat Univers n 10 mg 3-09 in 10 mg ity of tablet 00:00: tablet [facility] rosuvastati 2022-0 Yes rosuvastat Univers n 10 mg 3-09 in 10 mg ity of tablet 00:00: tablet [place] [facility] traMADoL 50 2021-0 Yes tramadol Un [place] mg tablet 3-02 [...] MOUTH TWICE DAILY NEEDED FOR PAIN Docusate 2020-0 No Notes: Memoria Sodium 50 8-07 (Same as l MG / 14:00: Senokot-S) [place] sennosides, 00 Equiv. to ASSISTED 8.6 MG [place] Oral Tablet e. Docusate 2020-0 No Notes: [facility] Sodium 50 8-07 (Same as l MG / 14:00: Senokot-S) [place] sennosides, 00 Equiv. to ASSISTED 8.6 MG [place] Oral Tablet e. Docusate 2020-0 No Notes: Memoria Sodium 50 8-07 (Same as l MG / 14:00: Senokot-S) [place] sennosides, 00 Equiv. to ASSISTED 8.6 MG [facility] Oral Tablet e. Enoxaparin 2020-0 No Notes: Memor ia 8-07 (Same as: l 04:00: Lovenox) Enoxaparin 2020-0 No Notes: Memor ia 8-07 (Same as: l 04:00: Lovenox) Enoxaparin 2020-0 No Notes: Memor ia 8-07 (Same as: l 04:00: Lovenox) Iohexol 2020-0 No 75 mL, Memoria 06-23 Route: l 22:33: IVP, Drug Form: SOLN, Dosing Weight 72.727, kg, ONCALL, STAT, Start date: 06/23/20 17:33:00 CDT, Duration: 1 doses or times, Dose = 2.2ml/kg, Max dose = 100ml -- "To be infused by Radiology Staff ONLY" Iohexol 2020-0 No 75 mL, Memoria 06-23 Route: l 22:33: IVP, Drug [place] 00 Form: SOLN, Dosing Weight 72.727, kg, ONCALL, STAT, Start date: 06/23/20 17:33:00 CDT, Duration: 1 doses or times, Dose = 2.2ml/kg, Max dose = 100ml -- "To be infused by Radiology Staff ONLY" Iohexol 2020-0 No 75 mL, Memoria 06-23 Route: l 22:33: IVP, Drug [place] 00 Form: SOLN, Dosing Weight 72.727, kg, ONCALL, STAT, Start date: 06/23/20 17:33:00 CDT, Duration: 1 doses or times, Dose = 2.2ml/kg, Max dose = 100ml -- "To be infused by Radiology Staff ONLY" Acetaminoph 2020-0 No Notes: Do M emoria en 06-23 not exceed l 17:00: 4 gm/day. (Same as: Tylenol) Acetaminoph 2020-0 No Notes: Do M emoria en 06-23 not exceed l 17:00: 4 gm/day. (Same as: Tylenol) Acetaminoph 2020-0 No Notes: Do M emoria en 06-23 not exceed l 17:00: 4 gm/day. [place] 00 (Same as: Tylenol) phenylephri 2020-0 No Route: IV, Memoria ne (ANES) 06-23 Drug form: l 16:05: INJ, ONCE, Stop date: 06/23/20 11:05:00 CDT phenylephri 2020-0 No Route: IV, Memoria ne (ANES) 06-23 Drug form: l 16:05: INJ, ONCE, [place] 00 Stop date: 06/23/20 11:05:00 CDT phenylephri 2020-0 No Route: IV, Memoria ne (ANES) 06-23 Drug form: l 16:05: INJ, ONCE, Stop date: 06/23/20 11:05:00 CDT propofol 2020-0 No Route: IV, Mem oria (ANES) 06-23 Drug form: l 16:00: INJ, ONCE, Stop date: 06/23/20 11:00:00 CDT propofol 2020-0 No Route: IV, Mem oria (ANES) 06-23 Drug form: l 16:00: INJ, ONCE, Stop date: 06/23/20 11:00:00 CDT propofol 2020-0 No Route: IV, Mem oria (ANES) 06-23 Drug form: l 16:00: INJ, ONCE, Stop date: 06/23/20 11:00:00 CDT Tramadol 2020-0 No Notes: Not Mem oria 06-23 to exceed l 15:58: 400mg/day. (Same As: Ultram) Tramadol 2020-0 No Notes: Not Mem oria 06-23 to exceed l 15:58: 400mg/day. (Same As: Ultram) Tramadol 2020-0 No Notes: Not Mem oria 06-23 to exceed l 15:58: 400mg/day. (Same As: Ultram) glycopyrrol 2020-0 No Route: IV, Memoria ate (ANES) 06-23 Drug form: l 15:40: INJ, ONCE, Stop date: 06/23/20 10:40:00 CDT ceFAZolin 2020-0 No Route: IV, Me moria (ANES) 06-23 Drug form: l 15:40: INJ, ONCE, Stop date: 06/23/20 10:40:00 CDT glycopyrrol 2020-0 No Route: IV, Memoria ate (ANES) 06-23 Drug form: l 15:40: INJ, ONCE, Stop date: 06/23/20 10:40:00 CDT ceFAZolin 2020-0 No Route: IV, Me moria (ANES) 06-23 Drug form: l 15:40: INJ, ONCE, Stop date: 06/23/20 10:40:00 CDT glycopyrrol 2020-0 No Route: IV, Memoria ate (ANES) 06-23 Drug form: l 15:40: INJ, ONCE, Stop date: 06/23/20 10:40:00 CDT ceFAZolin 2020-0 No Route: IV, moria (ANES) 06-23 Drug form: l 15:40: INJ, ONCE, Stop date: 06/23/20 10:40:00 CDT midazolam 2020-0 No Route: IV, moria (ANES) 06-23 Drug form: l 15:35: SOLN, [place] ONCE, Stop date: 06/23/20 10:35:00 CDT fentaNYL 2020-0 No Route: IV, Mem oria (ANES) 06-23 Drug form: l 15:35: INJ, ONCE, Stop date: 06/23/20 10:35:00 CDT dexmedetomi 2020-0 No Route: IV, Memoria dine (ANES) 06-23 Drug form: l 15:35: INJ, ONCE, Stop date: 06/23/20 10:35:00 CDT metoprolol 2020-0 No Route: IV, Susana emoria (ANES) 06-23 Drug form: l 15:35: INJ, ONCE, Stop date: 06/23/20 10:35:00 CDT midazolam 2020-0 No Route: IV, moria (ANES) 06-23 Drug form: l 15:35: SOLN, [place] 00 ONCE, Stop date: 06/23/20 10:35:00 CDT fentaNYL 2020-0 No Route: IV, Mem oria (ANES) 06-23 Drug form: l 15:35: INJ, ONCE, Stop date: 06/23/20 10:35:00 CDT dexmedetomi 2020-0 No Route: IV, Memoria dine (ANES) 06-23 Drug form: l 15:35: INJ, ONCE, Stop date: 06/23/20 10:35:00 CDT metoprolol 2020-0 No Route: IV, Susana emoria (ANES) 06-23 Drug form: l 15:35: INJ, ONCE, Stop date: 06/23/20 10:35:00 CDT midazolam 2020-0 No Route: IV, moria (ANES) 06-23 Drug form: l 15:35: SOLN, ONCE, Stop date: 06/23/20 10:35:00 CDT fentaNYL 2020-0 No Route: IV, Mem oria (ANES) 06-23 Drug form: l 15:35: INJ, ONCE, Stop date: 06/23/20 10:35:00 CDT dexmedetomi 2020-0 No Route: IV, Memoria dine (ANES) 06-23 Drug form: l 15:35: INJ, ONCE, Stop date: 06/23/20 10:35:00 CDT metoprolol 2020-0 No Route: IV, Susana brennana (ANES) 06-23 Drug form: l 15:35: INJ, ONCE, Stop date: 06/23/20 10:35:00 CDT Lactated 2020-0 No Route: IV, Mem oria Ringers 8- Total l Injection 14:45: Volume: Cait nn IV (ANES) 00 1,000, 1000 mL Start date: 06/23/20 9:45:00 CDT, Stop date: 06/23/20 10:45:00 CDT Lactated 2020-0 No Route: IV, Mem oria Ringers 8-06 Total l Injection 14:45: Volume: Cait nn IV (ANES) 00 1,000, 1000 mL Start date: 06/23/20 9:45:00 CDT, Stop date: 06/23/20 10:45:00 CDT Lactated 2020-0 No Route: IV, Mem oria Ringers 8-06 Total l Injection 14:45: Volume: Cait nn IV (ANES) 00 1,000, 1000 mL Start date: 06/23/20 9:45:00 CDT, Stop date: 06/23/20 10:45:00 CDT Iohexol 2020-0 No 100 mL, Memoria 06-23 Route: l 11:12: IVP, Drug Form: SOLN, Dosing Weight 72.727, kg, ONCALL, STAT, Start date: 06/23/20 6:12:00 CDT, Duration: 1 doses or times, Dose = 2.2ml/kg, Max dose = 100ml -- "To be infused by Radiology Staff ONLY" Iohexol 2020-0 No 100 mL, Memoria 06-23 Route: l 11:12: IVP, Drug [place] Form: SOLN, Dosing Weight 72.727, kg, ONCALL, STAT, Start date: 06/23/20 6:12:00 CDT, Duration: 1 doses or times, Dose = 2.2ml/kg, Max dose = 100ml -- "To be infused by Radiology Staff ONLY" Iohexol 2020-0 No 100 mL, Memoria 06-23 Route: l 11:12: IVP, Drug [place] 00 Form: SOLN, Dosing Weight 72.727, kg, ONCALL, STAT, Start date: 06/23/20 6:12:00 CDT, Duration: 1 doses or times, Dose = 2.2ml/kg, Max dose = 100ml -- "To be infused by Radiology Staff ONLY" azithromyci azithromyci No azithromyc [place] n 250 mg n 250 mg in 250 mg Co mmuni tablet tablet tablet ty [facility] tramadol 50 tramadol 50 No tramadol [place] mg tablet mg tablet 50 mg Comm uni TAKE 1 TAKE 1 tablet ty TABLET BY TABLET BY TAKE 1 Hos elisabeth MOUTH TWICE MOUTH TWICE TABLET BY l DAILY DAILY MOUTH Clinic s NEEDED FOR NEEDED FOR TWICE PAIN PAIN DAILY NEEDED FOR PAIN levothyroxi levothyroxi No levothyrox [place] 100 mcg ne 100 mcg ine 100 da tablet TAKE tablet TAKE mcg tablet Medical 1 TABLET BY 1 TABLET BY TAKE 1 Group MOUTH DAILY MOUTH DAILY TABLET BY MOUTH DAILY rosuvastati rosuvastati No rosuvastat [place] n 10 mg n 10 mg in 10 mg da tablet tablet tablet Medical Group Tirosint-So Tirosint-So No Tirosint-S [place] 75 mcg/mL l 75 mcg/mL ol 75 da oral oral mcg/mL Medical solution solution oral Group TAKE 1 ML TAKE 1 ML solution VIA PEG VIA PEG TAKE 1 ML TUBE EVERY TUBE EVERY VIA PEG DAY IN THE DAY IN THE TUBE EVERY MORNING 2 MORNING 2 DAY IN THE HOURS HOURS MORNING 2 BEFORE MEAL BEFORE MEAL HOURS WITH 20 ML WITH 20 ML BEFORE WATER WATER MEAL WITH CHASER CHASER 20 ML AFTER. 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 trazodone trazodone No trazodone [place] 100 mg 100 mg 100 mg da tablet tablet tablet Medical Group levothyroxi levothyroxi No levothyrox [place] ne 100 mcg ne 100 mcg ine 100 da tablet TAKE tablet TAKE mcg tablet Medical 1 TABLET BY 1 TABLET BY TAKE 1 Group MOUTH DAILY MOUTH DAILY TABLET BY MOUTH DAILY rosuvastati rosuvastati No rosuvastat [place] n 10 mg n 10 mg in 10 mg da tablet tablet tablet Medical Group Tirosint-So Tirosint-So No Tirosint-S [place] 75 mcg/mL l 75 mcg/mL ol 75 da oral oral mcg/mL Medical solution solution oral Group TAKE 1 ML TAKE 1 ML solution VIA PEG VIA PEG TAKE 1 ML TUBE EVERY TUBE EVERY VIA PEG DAY IN THE DAY IN THE TUBE EVERY MORNING 2 MORNING 2 DAY IN THE HOURS HOURS MORNING 2 BEFORE MEAL BEFORE MEAL HOURS WITH 20 ML WITH 20 ML BEFORE WATER WATER MEAL WITH CHASER CHASER 20 ML AFTER. 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 trazodone trazodone No trazodone [place] 100 mg 100 mg 100 mg da tablet tablet tablet Medical Group famotidine famotidine No famotidine [place] 20 mg 20 mg 20 mg da tablet tablet tablet Medical Group imiquimod 5 imiquimod 5 No imiquimod [place] % topical % topical 5 % da cream cream topical Medical packet packet cream Group APPLY 1 APPLY 1 packet PACKET PACKET APPLY 1 TOPICALLY 3 TOPICALLY 3 PACKET TIMES A TIMES A TOPICALLY WEEK WASH WEEK WASH 3 TIMES A HANDS PRIOR HANDS PRIOR WEEK WASH TO AND TO AND HANDS FOLLOWING FOLLOWING PRIOR TO APPLICATION APPLICATION AND EVERY EVERY FOLLOWING Saturday APPLICATIO Saturday N EVERY AND SATURDAY AND Saturday AND SATURDAY levothyroxi levothyroxi No levothyrox [place] ne 88 mcg ne 88 mcg ine 88 mcg da tablet tablet tablet Medical Group rosuvastati rosuvastati No rosuvastat [place] 10 mg n 10 mg in 10 mg da tablet tablet tablet Medical Group Tirosint-So Tirosint-So No Tirosint-S [place] 75 mcg/mL l 75 mcg/mL ol 75 da oral oral mcg/mL Medical solution solution oral Group TAKE 1 ML TAKE 1 ML solution VIA PEG VIA PEG TAKE 1 ML TUBE EVERY TUBE EVERY VIA PEG DAY IN THE DAY IN THE TUBE EVERY MORNING 2 MORNING 2 DAY IN THE HOURS HOURS MORNING 2 BEFORE MEAL BEFORE MEAL HOURS WITH 20 ML WITH 20 ML BEFORE WATER WATER MEAL WITH CHASER CHASER 20 ML AFTER. 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 bromphenira bromphenira No bromphenir [place] mine-pseudo mine-pseudo amine-pseu da ephedrine-D ephedrine-D doephedrin Medical M 2 mg-30 M 2 mg-30 e-DM 2 Rukhsana up mg-10 mg/5 mg-10 mg/5 mg-30 mL oral mL oral mg-10 mg/5 syrup TAKE syrup TAKE mL oral 10 ML BY 10 ML BY syrup TAKE MOUTH EVERY MOUTH EVERY 10 ML BY 6 HOURS 6 HOURS MOUTH EVERY 6 HOURS famotidine famotidine No famotidine [place] 20 mg 20 mg 20 mg da tablet TAKE tablet TAKE tablet Medical 1 TABLET 1 TABLET TAKE 1 Group VIA PEG VIA PEG TABLET VIA TUBE EVERY TUBE EVERY PEG TUBE 12 HOURS 12 HOURS EVERY 12 FOR 5 DAYS FOR 5 DAYS HOURS FOR 5 DAYS levothyroxi levothyroxi No levothyrox [place] ne 50 mcg ne 50 mcg ine 50 mcg da tablet TAKE tablet TAKE tablet Medical 1 TABLET 1 TABLET TAKE 1 Group EVERY DAY EVERY DAY TABLET DIRECTED DIRECTED EVERY DAY PER MD ON PER MD ON EMPTY EMPTY DIRECTED STOMACH STOMACH PER MD ON EMPTY STOMACH Vital Signs Vital Name Observation Time Observation Value Comments Source Systolic blood 2023-04-22 13:04:00 90 mm[Hg] Univer sity of pressure [facility] Diastolic blood 2023-04-22 13:04:00 48 mm[Hg] Unive rsity of [facility] Heart rate 2023-04-22 13:04:00 59 /min [facility] Body height 2023-04-22 13:03:00 170.2 cm [facility] Body weight 2023-04-22 13:03:00 71.85 kg [facility] BMI 2023-04-22 13:03:00 24.81 kg/m2 [facility] Oxygen saturation in 2023-04-22 13:03:00 95 /min [facility] blood by [facility] Pulse oximetry Branch BP Diastolic 2023-03-05 00:00:00 69 mm[Hg] [facility] Height 2023-03-05 00:00:00 67 [in_i] [facility] BMI (Body Mass 2023-03-05 00:00:00 26.2 kg/m2 [facility]) Group BP Systolic 2023-03-05 00:00:00 103 mm[Hg] [facility] Body Weight 2023-03-05 00:00:00 167.4 [lb_av] [facility] BP Diastolic 2022-11-21 00:00:00 71 mm[Hg] [facility] Height 2022-11-21 00:00:00 67 [in_i] [facility] BMI (Body Mass 2022-11-21 00:00:00 29.7 kg/m2 [facility] [facility]) Group BP Systolic 2022-11-21 00:00:00 104 mm[Hg] [facility] Body Weight 2022-11-21 00:00:00 189.8 [lb_av] [facility] Height 2022-11-20 00:00:00 67 [in_i] [facility] BP Diastolic 2022-07-19 00:00:00 85 mm[Hg] [facility] Height 2022-07-19 00:00:00 67 [in_i] [facility] BMI (Body Mass 2022-07-19 00:00:00 30.1 kg/m2 [facility] Group BP Systolic 2022-07-19 00:00:00 138 mm[Hg] [facility] Body Weight 2022-07-19 00:00:00 192 [lb_av] [facility] BP Diastolic 2022-03-21 00:00:00 85 mm[Hg] [facility] Height 2022-03-21 00:00:00 67 [in_i] [facility] BMI (Body Mass 2022-03-21 00:00:00 28.4 kg/m2 [facility]) Group BP Systolic 2022-03-21 00:00:00 126 mm[Hg] [facility] Body Weight 2022-03-21 00:00:00 181.2 [lb_av] [facility] BP Diastolic 2021-10-31 00:00:00 80 mm[Hg] [facility] Height 2021-10-31 00:00:00 67 [in_i] [facility] BMI (Body Mass 2021-10-31 00:00:00 23.6 kg/m2 [facility]) Group BP Systolic 2021-10-31 00:00:00 117 mm[Hg] [facility] Body Weight 2021-10-31 00:00:00 151 [lb_av] [facility] BP Diastolic 2021-09-14 00:00:00 74 mm[Hg] [facility] Height 2021-09-14 00:00:00 67 [in_i] [facility] BMI (Body Mass 2021-09-14 00:00:00 22 kg/m2 [facility] Group BP Systolic 2021-09-14 00:00:00 109 mm[Hg] [facility] Body Weight 2021-09-14 00:00:00 140.6 [lb_av] [facility] BP Diastolic 2021-07-25 00:00:00 76 mm[Hg] [facility] Height 2021-07-25 00:00:00 67 [in_i] [facility] BMI (Body Mass 2021-07-25 00:00:00 20 kg/m2 [facility] Group BP Systolic 2021-07-25 00:00:00 119 mm[Hg] [facility] Body Weight 2021-07-25 00:00:00 127.7 [lb_av] [facility] Height 2021 00:00:00 67 [in_i] [facility] BMI (Body Mass 2021 00:00:00 19.8 kg/m2 [facility]) Group BP Systolic 2021 00:00:00 104 mm[Hg] [facility] Body Weight 2021 00:00:00 126.3 [lb_av] [facility] BP Diastolic 2021 00:00:00 70 mm[Hg] [facility] BP Diastolic 2021-02-02 00:00:00 80 mm[Hg] [facility] Height 2021-02-02 00:00:00 64 [in_i] [facility] BMI (Body Mass 2021-02-02 00:00:00 23.2 kg/m2 [facility] BP Systolic 2021-02-02 00:00:00 124 mm[Hg] [facility] Body Weight 2021-02-02 00:00:00 2160 [oz_av] [facility] Systolic (mm Hg) 2020-06-29 17:54:00 [facility]dy [facility] [place] Diastolic (mm Hg) 2020-06-29 17:54:00 [facility] [place] Heart Rate 2020-06-29 17:54:00 [facility] Temperature Oral (F) 2020-06-29 17:54:00 98.3 F [facility] Respitory Rate 2020-06-29 17:54:00 Memori [facility] [place] Systolic (mm Hg) 2020-06-29 14:09:00 Ruddy [facility] [place] Diastolic (mm Hg) 2020-06-29 14:09:00 [facility] [place] Heart Rate 2020-06-29 14:09:00 [facility] Temperature Oral (F) 2020-06-29 14:09:00 98.7 F [facility] Respitory Rate 2020-06-29 14:09:00 [facility] [place] Respitory Rate 2020-06-29 13:55:00 [facility] [place] Temperature Oral (F) 2020-06-29 09:12:00 98.2 F [facility] Systolic (mm Hg) 2020-06-29 09:12:00 Ruddy [facility] [place] Diastolic (mm Hg) 2020-06-29 09:12:00 [facility] [place] Respitory Rate 2020-06-27 07:00:00 [facility] [place] Systolic (mm Hg) 2020-06-27 07:00:00 Ruddy [facility] [place] Diastolic (mm Hg) 2020-06-27 07:00:00 [facility] [place] Respitory Rate 2020-06-27 06:00:00 [facility] [place] Systolic (mm Hg) 2020-06-27 06:00:00 Ruddy [facility] [place] Diastolic (mm Hg) 2020-06-27 06:00:00 [facility] [place] Respitory Rate 2020-06-27 05:00:00 [facility] [place] Systolic (mm Hg) 2020-06-27 05:00:00 Ruddy [facility] [place] Diastolic (mm Hg) 2020-06-27 05:00:00 [facility] [place] Temperature Oral (F) 2020-06-26 13:00:00 97 F [facility] Temperature Oral (F) 2020-06-24 13:11:00 97.5 F [facility] Height 2020-06-23 08:26:00 170.18 cm [facility] BMI Calculated 2020-06-23 08:26:00 [facility] [place] Weight 2020-06-23 08:26:00 [facility] Heart Rate 2020-06-23 08:26:00 [facility] Temperature Oral (F) 2020-06-23 08:26:00 98.3 F [facility] Procedures Procedure Date / Time Performing Clinician Source Performed DISCLOSURE AND CONSENT, 2023-05-03 05:01:00 Doctor Unassigned, N o [facility] MEDICAL AND SURGICAL Name Medical [facility] PROCEDURES AUTHORIZATION TO RELEASE 2023-04-22 05:01:00 Doctor Unassigned, No [facility] PHI TO [facility] Name Medical [facility] [place] [facility] Percutaneous Endoscopic [facility] Plan of Care Planned Activity Planned Date Details Comments Source Future Appointment 2023-06-04 Saúl Johnson 10:15:00 [facility]; Group [address], [place] [address] Encounters Start End Encounter Admission Attending Care Care Encounter Source Date/Time Date/Time Type Type Clinicians Facility Department ID 2022-01-09 Outpatient R FRANKLIN TABARES [facility] [id number] Univers 09:56:56 FRANKLIN TABARES [facility] 2022-01-05 Outpatient [facility] [id number] Univers 12:53:33 FRANKLIN TABARES [facility] 2022-01-02 Outpatient [facility]ES [facility] [id number] Univers 15:00:00 FRANKLIN TABARES it y of [facility] 2021-10-20 Inpatient R BRANDON [facility] CONNIE [id number] Univers 16:28:55 JANETTE ity [facility] 2021-10-06 Outpatient R BRANDON [facility] CONNIE [id number] Univers 13:08:21 JANETTE ity [facility] 2021-10-05 [facility] [id number] Univers 11:41:47 JANETTE ity [facility] 2023-05-05 2023-05-05 Nurse SHARON Gallo 1.2.840.114 [id number] Univers 00:00:00 00:00:00 Triage Britany PANTERA 350.1.13.10 it y of [facility] 4.2.7.2.686 [place] as [id number] [facility] [address] 2023-05-03 2023-05-03 Telephone [employer] 1.2.840.114 [id number] Univers 00:00:00 00:00:00 Umair HEALTH 350.1.13.10 it [place] - [id number] [facility] [address] 2023-05-03 2023-05-03 Orders Doctor SHARON 1.2.840.114 [id number] Univers 00:00:00 00:00:00 Only Unassigned, PANTERA 350.1.13.10 ity of [place] [facility] 4.2.7.2.686 Beni as [phone] [facility] [address] 2023-05-01 2023-05-01 Outpatient R MARCI [facility] [id number] Univers 08:00:00 08:00:00 HALIMA ity [facility] 2023-04-29 2023-04-29 Telephone [employer] 1.2.840.114 [id number] Univers 00:00:00 00:00:00 Umair HEALTH 350.1.13.10 it [place] - [id number] [facility] [address] 2023-04-26 2023-04-26 Telephone [facility] 1.2.840.114 [id number] Univers 00:00:00 00:00:00 [facility] 350.1.13.10 it y of CANCER 4.2.7.2.686 [facility] - [phone] [address] 2023-04-23 2023-04-23 Telephone [facility] 1.2.840.114 [id number] Univers 00:00:00 00:00:00 [facility] 350.1.13.10 it y of CANCER 4.2.7.2.686 [facility] [id number] [address] 2023-04-22 2023-04-22 Outpatient R UMAIR JIN [facility] [id number] Univers 08:00:00 10:11:03 UMAIR JIN ity of [facility] 2023-04-22 2023-04-22 Office Kimberly [facility] 1.2.840.114 [id number] Univers 08:00:00 10:11:[address] [facility] 350.1.13.10 it y of CANCER 4.2.7.2.686 [facility] [id number] [address] 2023-04-22 2023-04-22 Telephone Kimberly, [facility] 1.2.840.114 [id number] Univers 00:00:00 00:00:[address] [facility] 350.1.13.10 it y of CANCER 4.2.7.2.686 [facility] [id number] [address] 2023-04-22 2023-04-22 Orders Doctor SHARON 1.2.840.114 [id number] Univers 00:00:00 00:00:00 Only Unassigned, PANTERA 350.1.13.10 ity of [place] [facility] 4.2.7.2.686 [facility] [id number] [address] 2023-04-08 2023-04-08 [facility] 1.2.840.114 [id number] Univers 00:00:00 00:00:00 [facility] 350.1.13.10 y of CANCER 4.2.7.2.686 [facility] CENTER - [id number] [facility] [address] 2023-03-05 2023-03-05 Will Munoz MMG [place] - [id number] [place] 00:00:00 00:00:00 : Saúl Ware [facility] [address], [facility], Otolaryngol [facility] [address] , Ph. 2022-12-04 2022-12-04 Outpatient Yan_W MMG MMG [id number] [place] 00:00:00 00:00:00 0413 Medical Group 2022-12-04 2022-12-04 Outpatient Yan_W MMG MMG [id number] [place] 00:00:00 00:00:00 0417 [facility] Group 2022-12-04 2022-12-04 Outpatient Yan_W MMG MMG [id number] [place] 00:00:00 00:00:00 0418 [facility] 2022-12-04 2022-12-04 Outpatient Yan_W MMG MMG [id number] [place] 00:00:00 00:00:00 0613 [facility] Group 2022-11-21 2022-11-21 Outpatient Yan_W MMG MMG [id number] [place] 00:00:00 00:00:00 0104 [facility] 2022-11-21 2022-11-21 Outpatient Yan_W MMG MMG [id number] [place] 00:00:00 00:00:00 0105 [facility] 2022-11-21 2022-11-21 Outpatient Yan_W MMG MMG [id number] [place] 00:00:00 00:00:00 0110 [facility] 2022-11-21 2022-11-21 Outpatient Yan_W MMG MMG [id number] [place] 00:00:00 00:00:00 0112 [facility] 2022-11-21 2022-11-21 [place]patient Yan_[place] [id number] [place] 00:00:00 00:00:00 0115 [facility] 2022-11-21 2022-11-21 Outpatient Yan_W SHEN IRWIN [id number] [place] 00:00:00 00:00:00 0117 [facility] 2022-11-21 2022-11-21 SHEN Johnson [place] - [id number] [place] 00:00:00 00:00:00 MD: Saúl [facility] [address], [facility], Otolaryngol [place] ogy[place] [address] , Ph. 2022-11-20 2022-11-20 Outpatient AmadouW SHEN IRWIN [id number] [place] 00:00:00 00:00:00 0103 [facility] 2022-11-20 2022-11-20 Will MunozSHEN [place] - [id number] [place] 00:00:00 00:00:00 : Saúl [facility] [address], [facility], Otolaryngol [place] og-[facility] [place] [address] , Ph. 2022-08-24 2022-08-24 Telephone [facility] 1.2.840.114 [id number] Univers 00:00:00 00:00:00 [facility] 350.1.13.10 it y of CANCER 4.2.7.2.686 [facility] - [id number] [facility] [address] 2022-07-24 2022-07-24 Telephone [facility] 1.2.840.114 [id number] Univers 00:00:00 00:00:00 [facility] 350.1.13.10 it y of CANCER 4.2.7.2.686 [facility] - [id number] [facility] [address] 2022-07-19 2022-07-19 [place]oz[place] - [id number] 022 [place] 00:00:00 00:00:00 MD: Saúl Ware 09 [facility] [address], [facility], Otolaryngol [place] [address] , Ph. 2022-07-18 2022-07-18 Outpatient Hari GOTTI [facility] [id number] [place] 00:00:00 00:00:00 0831 [facility] 2022-03-21 2022-03-21 Hari [place] [facility] [place] - [id number] 022 [place] 00:00:00 00:00:00 : Saúl Ware 0504 [facility] [address], [facility], Otolaryngol [place] [address] , Ph. 2022-03-02 2022-03-02 Telephone [facility] 1.2.840.114 [id number] Univers 00:00:00 00:00:00 Janette HEALTH 350.1.13.10 it [place] - [id number] [facility] [address] 2022-03-02 2022-03-02 Telephone MIKE Tabares 1.2.840.114 [id number] Univers 00:00:00 00:00:00 [facility] HEALTH 350.1.13.10 i ty of CL[place]ICS [place].2.7.2.[place] [id number] [facility] [address] 2022-02-28 2022-02-28 Telephone Keon [facility] 1.2.715.598 [id number] Univers 00:00:00 00:00:00 [facility] HEALTH 350.1.13.10 it [place] - [id number] [facility] [address] 2022-02-16 2022-02-16 Outpatient R NHAN ZAMORA [facility] [id number] Univers 13:15:00 13:15:00 ity of [facility] 2022-02-10 2022-02-10 Telephone Nhan Zamora [facility] 1.2.840.114 [id number] Univers 00:00:00 00:00:00 SPECIALTY 350.1.13.10 ity of [place] AT [id number] Al yohan WATTS [address] [place] [address] 2022-02-08 2022-02-08 Outpatient R JULIO OROZCO [facility] [id number] Univers 14:30:00 14:30:00 JULIO OROZCO i ty of [facility] 2022-02-07 2022-02-07 Multidisci ELLA Graf 1.2.840.11 [id number] Univers 00:00:00 00:00:00 plinary Sindusha H 350.1.13.10 i ty of Conference BUILDING 4.2.7.2.686 [place] [id number] [address] 2022-01-23 2022-01-23 Telephone MIKE Tabares 1.2.840.114 [id number] Univers 00:00:00 00:00:00 [facility] HEALTH 350.1.13.10 i ty [place] CL[place] [id number] [address] 2022-01-22 2022-01-22 Case MIKE Tabares 1.2.252.029 [id number] Univers 00:00:00 00:00:00 Management Shiwan Y HEALTH 350.1.13.10 ity of CL[place]ICS [place].2.[place] [id number] [address] 2022-01-18 2022-01-18 Telephone MIKE Tabares 1.2.840.114 [id number] Univers 00:00:00 00:00:00 [facility] Y HEALTH 350.1.13.10 i ty of CL[place]2.[place] [id number] [address] 2022-01-17 2022-01-17 Outpatient R FRANKLIN TABARES [facility] MPU 10 [id number] Univers 06:42:00 11:50:00 FRANKLIN TABARES i ty of [facility] 2022-01-17 2022-01-17 [facility] JAG Tabares 1.2.840.114 [id number] Univers 06:42:00 11:50:00 Encounter Franklin MOTT 350.1.13.10 ity of HOSPITAL 4.2.7.2.686 Beni as [id number] [facility] omar [address] 2022-01-17 2022-01-17 Surgery JAG Tabares 1.2.840.114 [id number] Univers 09:00:00 10:53:00 Shiaveryn PANTERA 350.1.13.10 it y of HOSPITAL 4.2.7.2.686 [place]i as [id number] [facility] omar [address] 2022-01-17 2022-01-17 Orders Doctor SHARON 1.2.840.114 [id number] Univers 00:00:00 00:00:00 Only Unassigned, PANTERA 350.1.13.10 ity of [place] [facility] 4.2.7.2.686 Beni as [id number] [facility] [address] 2022-01-05 2022-01-05 Telephone BENITA Hawley 1.2.840.114 [id number] Univers 00:00:00 00:00:00 [facility] HEALTH 350.1.13.10 ity of [place] CLINICS 4.2.7.2.[place] [id number] [facility] [address] 2022-01-04 2022-01-[address] [facility] 1.2.764.966 [id number] Univers 00:00:00 00:00:00 Owen REBOLLEDO 350.1.13.10 i ty of [facility] [place]7.2.[place] [id number] [facility] [address] 2022-01-02 2022-01-02 Office Lonnie Ann [facility] 1.2.840.11 [id number] Univers 08:00:00 09:00:00 Visit Felipe Hawley [facility] Y HEALTH 350.1. 13.10 ity of CL[place]ICS [place] [id number] [facility] [address] 2022-01-02 2022-01-02 Outpatient R CHANDAN [facility] [id number] Univers 08:00:00 08:00:00 [facility] o f [facility] 2022-01-02 2022-01-02 Case Manjinder Brewer, BENITAIT 1.2.882.722 [id number] Univers 00:00:00 00:00:00 Management [facility] 350.1.13.10 ity of CLINICS 4.2.7.2.[place] [id number] [facility] [address] 2022-01-01 2022-01-01 MultidNorman Layton 1.2.840.114 [id number] Univers 00:00:00 00:00:00 plinary PANTERA 350.1.13.10 it y of [facility] 4.2.7.2.686 [place] [id number] [facility] [address] 2022-01-01 2022-01-01 Norman Cates 1.2.840.114 [id number] Univers 00:00:00 00:00:00 plinary PANTERA 350.1.13.10 it y of [facility] 4.2.7.2.686 [place] [id number] [facility] [address] 2021-12-26 2021-12-26 Outpatient R CHANDAN [facility] [id number] Univers 09:00:00 09:00:00 [facility] raven o f [facility] 2021-12-22 2021-12-22 Orders Doctor HERRERA 1.2.840.114 [id number] Univers 00:00:00 00:00:00 Only Unassigned, PANTERA 350.1.13.10 ity of [place] [facility] 4.2.7.2.686 Beni as [id number] [facility] [address] 2021-12-05 2021-12-05 Transition DAVID Ferrara 1.2.840.114 [id number] Univers 00:00:00 00:00:00 of Care Nadine GRIMES 350.1.13.10 i ty of [place] [id number] [facility] [address] 2021-11-30 2021-12-02 [facility] Janette Hackett 1.2.840.114 [id number] Univers 12:52:00 21:02:00 Encounter Song Madsen 350.1.13.1 0 ity of HOSPITAL 4.2.7.2.686 [place]i [place] [id number] [facility] [address] 2021-11-30 2021-12-02 Inpatient R SONG MADSEN [facility] SALO [id number] Univers 09:44:49 21:02:00 ity of [facility] 2021-11-30 2021-12-02 Inpatient R SONG MADSEN [facility] SALO [id number] Univers 09:44:49 21:02:00 ity of [facility] 2021-11-24 2021-11-24 Telehealth Coordinator Hector, Ti Lab Main [facility] 1.2.8 40.114 [id number] Univers 09:30:00 09:45:00 Visit Anitra Wahl 350.1.13.10 ity of [place].2.7.2.[place] PROFESS[place] [id number] [facility] 353 [facility] 2021-11-24 2021-11-24 Outpatient R ANITRA WAHL [facility] [id number] Univers 09:30:00 09:30:00 ity of [facility] 2021-11-24 2021-11-24 Orders Doctor HERRERA 1.2.840.114 [id number] Univers 00:00:00 00:00:00 Only Unassigned, PANTERA 350.1.13.10 ity of [place] HOSPITAL 4.2.7.2.686 Beni as [id number] [facility] [address] 2021-11-08 2021-11-08 Outpatient R ANITRA WAHL [facility] [id number] Univers 08:54:48 23:59:00 ity of [facility] 2021-11-08 2021-11-08 Hospital Ella Wahle BENITA 1.2.840.114 [id number] Univers 08:54:48 23:59:00 Encounter Bhavik [facility] HEALTH 350.1. 13.10 ity of [facility] 4.2.7.2.686 [place] [id number] [facility] [address] 2021-10-31 2021-10-31 Telephone [facility] 1.2.840.114 [id number] Univers 00:00:00 00:00:00 Janette HEALTH 350.1.13.10 it y of [place] - [id number] [facility] [address] 2021-10-31 2021-10-31 Telephone [facility] 1.2.840.114 [id number] Univers 00:00:00 00:00:00 Janette HEALTH 350.1.13.10 it y of [place] - [id number] [facility] [address] 2021-10-31 2021-10-31 Alexander Johnson_W [facility] [place] - [address]-[address] [place], [place] [address]ago 00:00:00 00:00:00 : [facility] [address], [facility], Otolaryngol [facility] [address] , Ph. 2021-10-27 2021-10-27 Telephone [facility] 1.2.840.114 [id number] Univers 00:00:00 00:00:00 Janette HEALTH 350.1.13.10 it y of [place].2.[place] - [id number] [facility] [address] 2021-10-26 2021-10-26 Telephone [facility] 1.2.840.114 [id number] Univers 00:00:00 00:00:00 Janette HEALTH 350.1.13.10 it y of [place]2.[place] - [id number] [facility] [address] 2021-10-25 2021-10-25 [facility] Brandon [facility] 1.2.840.114 [id number] Univers 11:15:05 23:59:00 Encounter Janette Y HEALTH 350.1.13.10 ity of CLINICS 4.2.7.2.[place] [id number] [facility] [address] 2021-10-25 2021-10-25 [facility] 1.2.840.114 [id number] Univers 11:14:50 11:14:50 Encounter Janette Y HEALTH 350.1.13.10 ity of CLINICS 4[place]2.[place].2.[place] [id number] [facility] [address] 2021-10-25 2021-10-25 Outpatient R BRANDON [facility] [id number] Univers 11:14:34 11:14:34 JANETTE ity [facility] 2021-10-25 2021-10-25 [facility] 1.2.840.114 [id number] Univers 11:14:34 11:14:34 Encounter Janette Y HEALTH 350.1.13.10 ity of CL[place] [id number] [address] 2021-10-25 2021-10-25 Ancillary Cristine Stewart [facility] 1.2.840 .114 [id number] Univers 09:00:00 10:00:00 Visit Halima Covarrubias [facility] 350.1.13.10 ity of [place] - [id number] Med ical [facility] [address] 2021-10-25 2021-10-25 Outpatient Ruth COVARRUBIAS [facility] [id number] Univers 09:00:00 09:00:00 [facility] 2021-10-20 2021-10-20 Telehealth Coordinator Vls-Lab [facility] 1.2.840.114 [id number] Univers 10:30:59 10:45:59 Visit Janette Hackett 350.1.13.10 ity of CARE 4.2.7.2.[place] AT [id number] Al bandar[address] 2021-10-20 2021-10-20 Outpatient Ruth HACKETT [facility] [id number] Univers 10:30:00 10:30:00 JANETTE ity [facility] 2021-10-20 2021-10-20 Outpatient Ruth HACKETT [facility] [id number] Univers 09:30:00 09:30:00 JANETTE ity of [facility] 2021-10-20 2021-10-20 Office Roxanedavidson [facility] 1.2.840.114 [id number] Univers 09:07:03 09:22:03 Visit Janette HEALTH 350.1.13.10 it y of [place] 4.2.7.2.686 [place] [facility] [phone] Med ical [facility] [address] 2021-10-17 2021-10-17 Orders Doctor SHARON 1.2.840.114 [id number] Univers 00:00:00 00:00:00 Only Unassigned, PANTERA 350.1.13.10 ity of [place] [facility] 4.2.7.2.686 Beni as [phone] [facility] [address] 2021-10-16 2021-10-16 Multidisci WongSHARON nicolas 1.2.840.114 [id number] Univers 00:00:00 00:00:00 plinary Hiwot PANTERA 350.1.13.10 it y of Conference [facility] 4.2.7.2.686 [place] [phone] [facility] [address] 2021-10-10 2021-10-10 [facility] CON[facility]IE [id number] Univers 05:08:00 10:07:00 JANETTE ity of [facility] 2021-10-10 2021-10-10 Hospital JAG Hackett [id number] Univers 05:08:00 10:07:00 Encounter Janette PANTERA 350.1.13.10 ity of HOSPITAL 4.2.7.2.686 Beni as [phone] [facility] [address] 2021-10-10 2021-10-10 [facility] CONNIE [id number] Univers 05:08:00 10:07:00 JANETTE ity of [facility] 2021-10-10 2021-10-10 Surgery Brandon JAG [id number] Univers 07:15:00 09:05:00 Janette PANTERA 350.1.13.10 it y of HOSPITAL 4.2.7.2.686 Beni as [phone] [facility] [address] 2021-10-10 2021-10-10 Telephone [facility] 1.2.840.114 [id number] Univers 00:00:00 00:00:00 Janette HEALTH 350.1.13.10 it y of CANCER 4.2.7.2.686 [facility] s [place] - [phone] [facility] 144 Branch 2021-10-06 2021-10-06 Telephone [facility] [id number] Univers 00:00:00 00:00:00 Janette HEALTH 350.1.13.10 it y of CANCER 4.2.7.2.686 [facility] s [place] - [phone] [address] 2021-10-05 2021-10-05 [facility] 1.2.840.114 [id number] Univers 00:00:00 00:00:00 Janette HEALTH 350.1.13.10 it y of CANCER 4.2.7.2.686 [facility] - [phone] [address] 2021-10-04 2021-10-04 Outpatient [facility] [id number] Univers 14:30:00 14:30:00 [facility] 2021-10-04 2021-10-04 Outpatient R [facility] [id number] Univers 14:30:00 14:30:00 [facility] 2021-10-04 2021-10-04 [facility] [id number] Univers 13:54:58 14:09:58 [facility] [id number] it y of CANCER 4.2.7.2.686 [facility] [phone] [place] [address] Branch 2021-09-14 2021-09-14 Orders Doctor HERRERA 1.2.840.114 [id number] Univers 00:00:00 00:00:00 Only Unassigned, PANTERA 350.1.13.10 ity of [place] [facility] 4.2.7.2.686 Beni [phone] [address] 2021-09-14 2021-09-14 [place] - [address]-0 021 [place] 00:00:00 00:00:00 MD: Saúl Ware [address] [facility] [address], [facility], Ot[place]ol [place]gy[place] [address] , Ph. 2021-07-25 2021-07-25 [place] - [address]-2 021 [place] 00:00:00 00:00:00 MD: Saúl Ware [address] [facility] [address], [facility], Otolaryngol [place]gy-[place] [address] , Ph. 2021 2021 [place] - [address]-4 021 [place] 00:00:00 00:00:00 MD: Saúl Ware [address] [facility] [address], [facility], [place] [place] [address] , Ph. 2021-06-13 2021-06-13 [facility]patient [facility] [id number] 021 [place] 04:38:00 04:38:00 0727 [facility] 2021-02-10 2021-02-10 Outpatient KOVACEV_T [facility] [place] 04:37:00 04:37:00 0326 [facility] 2021-02-02 2021-02-02 Outpatient KOVACEV_T [facility] [id number] [place] 02:37:00 02:37:00 0318 [facility] 2021-02-02 2021-02-02 Efren [facility] [place] 00:00:00 00:00:00 [facility] florence Lynn [facility] - ty MD: Calvin [facility] Y[facility]itza, Specialty l [address], [place] [address] , Ph. 2021-02-02 2021-02-02 Outpatient Marcialubaldoleora [facility] [id number] 00:00:00 00:00:00 Efren [id number] Joan [phone] [id number] 2021-02-01 2021-02-01 Outpatient PEREZ_T [facility] [id number] [place] 06:07:00 06:07:00 0317 [facility] 2021-01-11 2021-01-11 Outpatient Ruth HACKETT [facility] [id number] Univers 14:15:00 14:15:00 [facility] 2020-12-28 2020-12-28 Telephone ELLA Choudhary 1.2.840.114 [id number] Univers 00:00:00 00:00:00 Elena Kimball 350.1.13.10 it y of [facility] 4.2.7.2.686 [place]i as [phone] [address] 2020-12-22 2020-12-22 Telephone ELLA Choudhary 1.2.840.114 [id number] Univers 00:00:00 00:00:00 Elena Kimball 350.1.13.10 it y of [facility] 4.2.7.2.686 Beni as [phone] [address] 2020-12-22 2020-12-22 Telephone ELLA Moses 1.2.840.114 [id number] Univers 00:00:00 00:00:00 Reece Kimball 350.1.13.10 it y of BUILDING 4.2.7.2.686 [place]i as [phone] [address] 2020-12-21 2020-12-21 Outpatient REECE CHAUDHARY [facility] [id number] Univers 13:00:00 14:01:10 REECE MOSES masood [facility] 2020-12-21 2020-12-21 Office ELLA Moses [id number] 12:27:55 14:01:10 Visit Reece Kimball 350.1.13.10 BUILDING 4.2.7.2.686 [id number] 080 2020-12-21 2020-12-21 Office Jose AngelELLA 1.2.960.485 [id number] Univers 12:27:55 14:01:10 Visit Reece Kimball 350.1.13.10 it y of BUILDING 4.2.7.2.686 [place]i as [phone] [facility] 080 [address] 2020-12-21 2020-12-21 Laboratory Only, [facility] Test UNIVERSIT 1.2.84 0.114 [id number] Univers 09:15:07 09:23:15 Only Reece Moses [facility] 350.1.13.10 ity of CL[place].2.[place] [phone] [facility] 316 [address] 2020-12-21 2020-12-21 Orders Doctor SHARON 1.2.840.114 [id number] Univers 00:00:00 00:00:00 Only Unassigned, PANTERA 350.1.13.10 ity of [place] [facility] 4.2.7.2.686 Beni as [phone] [facility] 009 Branch 2020-12-20 2020-12-20 [facility] 1.2.840.114 [id number] Univers 09:26:26 23:59:00 Encounter Janette [facility] 350.1.13.10 ity of CL[place] [phone] [facility] 807 Branch 2020-12-20 2020-12-20 Ancillary Swallows, Gal Speech Modifie d Barium UNIVERSIT 1.2.840.114 [id number] Univers 12:43:13 13:28:40 Visit Halima Covarrubias 350.1.13.10 [facility] 4.2.7.2.686 Beni as BANK [phone] [facility] BLDG. 145 [address] 2020-12-20 2020-12-20 Outpatient R MARCI [facility] [id number] Univers 10:00:00 10:00:00 [facility] 2020-12-14 2020-12-14 [facility] [id number] Univers 08:48:31 23:59:00 Encounter Janette SPECIALTY 350.1.13.10 it[place] [phone] Al yohan W[place] 801 [facility] 2020-12-14 2020-12-14 [facility] 1.2.081.447 [id number] Univers 08:48:10 23:59:00 Encounter Janette SPECIALTY 350.1.13.10 it[place] of [place] [phone] Al yohan WAT[place] 805 [facility] 2020-12-14 2020-12-14 [facility] 1.2.798.320 [id number] Univers 08:47:11 08:47:11 Encounter Janette SPECIALTY 350.1.13.10 it[place] of [place]2.[place] [phone] Al yohan WATTS [address] [place] [address] 2020-12-14 2020-12-14 [facility] [id number] Univers 00:00:00 00:00:00 [facility] 2020-12-07 2020-12-07 Outpatient Ruth [facility] [id number] Univers 15:00:00 15:00:00 [facility] 2020-12-06 2020-12-06 [facility] [id number] Univers 08:20:43 23:59:00 Encounter Janette SPECIALTY 350.1.13.10 it[place] [phone] Al yohan WATTS [address] [place] [address] 2020-12-06 2020-12-06 [facility] [id number] Univers 08:30:00 08:30:00 [facility] 2020-12-02 2020-12-02 Telephone [facility] 1.2.371.454 [id number] Univers 00:00:00 00:00:00 Lashonda Health 350.1.13.10 it y of [place] 4.2.7.2.686 Beni as Professio [phone] [address] Office [facility] One 2020-11-29 2020-11-29 Telephone [facility] 1.2.840.114 [id number] Univers 00:00:00 00:00:00 Janette Health 350.1.13.10 it y of [place]2.[place] - [phone] [facility] [address] 2020-11-28 2020-11-28 Outpatient [facility] [id number] Univers 00:00:00 00:00:00 ity of [facility] 2020-11-23 2020-11-23 Office [facility] 1.2.840.114 [id number] Univers 13:15:57 13:30:57 Visit Janette Health 350.1.13.10 it [place] of [place]2.[place].2.[place] - [phone] [facility] [address] 2020-11-23 2020-11-23 [facility] [id number] Univers 13:30:00 13:30:00 JANETTE ity [facility] 2020-11-23 2020-11-23 Orders Doctor HERRERA 1.2.840.114 [id number] Univers 00:00:00 00:00:00 Only Unassigned, PANTERA 350.1.13.10 ity of [place] [facility] 4.2.7.2.686 Beni as [phone] [address] 2020-11-17 2020-11-17 [facility] [id number] Univers 09:30:00 09:30:00 LASHONDA ity [facility] 2020-11-15 2020-11-15 Orders Doctor HERRERA 1.2.840.114 [id number] Univers 00:00:00 00:00:00 Only Unassigned, PANTERA 350.1.13.10 ity of [place] [facility] 4.2.7.2.686 Beni as [phone] [address] 2020-11-01 2020-11-01 Telephone [facility] 1.2.731.687 [id number] Univers 00:00:00 00:00:00 Lashonda Jason 350.1.13.10 it y of [place] 4.2.7.2.686 Beni as Professio [phone] Al dical [facility] [address] Building One 2020-10-27 2020-10-27 Office Nadineformerly [facility] 1.2.840.114 [id number] Univers 12:52:13 14:13:11 Visit Lashonda [facility] 350.1.13.10 it y of [place] 4.2.7.2.686 Beni as Professio [phone] [facility] [address] One 2020-10-27 2020-10-27 [facility] [id number] Univers 13:00:00 13:00:00 LASHONDA ity [facility] 2020-06-23 2020-06-29 Inpatient [facility] [id number] Memoria 08:26:00 22:15:[address] 2020-06-23 2020-06-29 Inpatient [facility] [id number] Memoria 08:26:00 22:15:[address] 2020-06-23 2020-06-29 Outpatient Dane, [facility] [id number] 03:26:00 17:15:00 Severnio Garcia 2020-06-23 2020-06-29 Inpatient E DANE, [facility] 02:19:00 17:15:00 SEVERINO 2020-06-23 2020-06-23 Outpatient Dane, [facility] [id number] 03:26:00 03:26:00 Severino Garcia Results Test Description Test Time Test Comments Results Result Comments Source CHEM [facility] 2020-06-23 17:48:00 Test Item Value Reference Range Interpretation Comme nts Magnesium Lvl (test code = Magnesium Lvl) 2.1 1.8-2.4 [facility]2020-08-06 17:48:00 Test Item Value Reference Range Interpretation Comments Phosphorus (test code = Phosphorus) 2.9 2.5-4.5 [facility]FylmrjpQFZWAXABWY0461-88-29 17:48:00 Test Item Value Reference Range Interpretation Comments C-REACTIVE PROTEIN (test code = no gt C-REACTIVE PROTEIN) [facility]roeVgsvdczAAHGLXTBPX1240-92-13 17:48:00 Test Item Value Reference Range Interpretation Comments Prealbumin (test code = Prealbumin) 24.1 18.0-45.0 [facility]roeannCHEM [id number] 17:48:00 Test Item Value Reference Range Interpretation Comments Magnesium Lvl (test code = Magnesium 2.1 1.8-2.4 Lvl) [facility]annCHEM [id number] 17:48:00 Test Item Value Reference Range Interpretation Comments Phosphorus (test code = Phosphorus) 2.9 2.5-4.5 [facility]roeJkmeukdAOWKBYWLTF6310-74-71 17:48:00 Test Item Value Reference Range Interpretation Comments C-REACTIVE PROTEIN (test code = no gt C-REACTIVE PROTEIN) [facility] ConroeOtlyuqxZYBUERKIQD6224-76-87 17:48:00 Test Item Value Reference Range Interpretation Comments Prealbumin (test code = Prealbumin) 24.1 18.0-45.0 [facility] ConroeLessonLab [id number] 17:48:002.1[facility] AAVLifeannCHEM PANEL 2020-06-23 17:48:002.9[facility]orial OoclsxsHZLBIJMBDC1563-55-89 17:48:00<2.9 [facility] ConroeWajwvamSVYJCALYHF7694-11-73 17:48:0024.1MemHouston [facility] HospitalannIMMUNOLOGY 2020-06-23 12:30:00 Test Item Value Reference Range Interpretation Comments Coronavirus (COVID-19) Not Detected (06/23/20 NEGRA (test code = 7:30 AM) Coronavirus (COVID-19) NEGRA) [facility] ConroeXulmnimSKYYBNEQCT6164-04-46 12:30:00 Test Item Value Reference Range Interpretation Comments Coronavirus (COVID-19) Not Detected (06/23/20 NEGRA (test code = 7:30 AM) Coronavirus (COVID-19) NEGRA) [facility]jmUMFXOWIXSI7246-51-21 12:30:00Not Detected (06/23/20 7:30 AM) [facility] [employer] [id number] 09:02:00 Test Item Value Reference Range Interpretation Comments ABO/Rh (test code = ABO/Rh) O POS [facility] [employer] [id number] 09:02:00 Test Item Value Reference Range Interpretation Comments Antibody Scrn (test Negative (06/23/20 4:02 code = Antibody Scrn) AM) [facility] VCharge [id number] 09:02:00 Test Item Value Reference Range Interpretation Comments Glucose Lvl (test code = Glucose Lvl) 131 70-99 [facility] VCharge [id number] 09:02:00 Test Item Value Reference Range Interpretation Comments BUN (test code = BUN) 18 7-22 [facility] VCharge [id number] 09:02:00 Test Item Value Reference Range Interpretation Comments Creatinine Lvl (test code = Creatinine 1.11 0.50-1.40 Lvl) [facility] VCharge [id number] 09:02:00 Test Item Value Reference Range Interpretation Comments Sodium Lvl (test code = Sodium Lvl) 139 135-145 [facility] VCharge [id number] 09:02:00 Test Item Value Reference Range Interpretation Comments Potassium Lvl (test code = Potassium 4.6 3.5-5.1 Lvl) [facility] VCharge [id number] 09:02:00 Test Item Value Reference Range Interpretation Comments Chloride Lvl (test code = Chloride Lvl) 104 95-109 [facility] VCharge [id number] 09:02:00 Test Item Value Reference Range Interpretation Comments CO2 (test code = CO2) 29 24-32 [facility] VCharge [id number] 09:02:00 Test Item Value Reference Range Interpretation Comments Calcium Lvl (test code = Calcium Lvl) 8.7 8.5-10.5 [facility] VCharge [id number] 09:02:00 Test Item Value Reference Range Interpretation Comments Albumin Lvl (test code = Albumin Lvl) 3.8 3.5-5.0 [facility] VCharge [id number] 09:02:00 Test Item Value Reference Range Interpretation Comments ALANINE AMINOTRANSFERASE 17 See_Comment [A utomated message] (test code = ALANINE The sys tem which AMINOTRANSFERASE) generated this result transmitted ref erence range: <=65. Th e reference range was not used to int erpret this result as normal/abnormal . [facility] VCharge [id number] 09:02:00 Test Item Value Reference Range Interpretation Comments ASPARTATE TRANSAMINASE 13 See_Comment [Aut omated message] (test code = ASPARTATE The s ystem which TRANSAMINASE) generated this result transmitted ref erence range: <=37. Th e reference range was not used to interpr et this result as normal/abnormal . [facility]roeLessonLab [id number] 09:02:00 Test Item Value Reference Range Interpretation Comments AGAP (test code = AGAP) 10.6 10.0-20.0 [facility] VCharge [id number] 09:02:00 Test Item Value Reference Range Interpretation Comments B/C Ratio (test code = B/C Ratio) 16 1 6-25 [facility] [id number] 09:02:00 Test Item Value Reference Range Interpretation Comments eGFR (test code = eGFR) 74 [facility] [id number] 09:02:00 Test Item Value Reference Range Interpretation Comments Total Protein (test code = Total 7.1 6.4-8.4 Protein) [facility] [id number] 09:02:00 Test Item Value Reference Range Interpretation Comments Alk Phos (test code = Alk Phos) 55 39-136 [facility] [id number] 09:02:00 Test Item Value Reference Range Interpretation Comments Bili Total (test code = Bili Total) 0.7 0.2-1.3 [facility] VCharge [id number] 09:02:00 Test Item Value Reference Range Interpretation Comments Globulin (test code = Globulin) 3.3 2.7-4.2 [facility] [id number] 09:02:00 Test Item Value Reference Range Interpretation Comments A/G Ratio (test code = A/G Ratio) 1.2 1 0.7-1.6 [facility] [id number] 09:02:00 Test Item Value Reference Range Interpretation Comments WBC X 10x3 (test code = WBC X 10x3) 12.2 3.7-10.4 [facility] ConroeZfvillfQEVJZPYJXA1556-94-26 09:02:00 Test Item Value Reference Range Interpretation Comments RBC X 10x6 (test code = RBC X 10x6) 4.63 4.70-6.10 [facility]RjyucbtNOBCGANVFQ7398-99-35 09:02:00 Test Item Value Reference Range Interpretation Comments Hgb (test code = Hgb) 15.0 14.0-18.0 [facility] DallasFnhdfwyOLEDBULZCO7227-73-62 09:02:00 Test Item Value Reference Range Interpretation Comments Hct (test code = Hct) 43.0 42.0-54.0 [facility] DallasNfghpjvECCBRDKADF6318-94-38 09:02:00 Test Item Value Reference Range Interpretation Comments MCV (test code = MCV) 92.8 80.0-94.0 [facility] DallasHcjojepQVTCSAVDQS0871-52-96 09:02:00 Test Item Value Reference Range Interpretation Comments MCH (test code = MCH) 32.5 pg 27.0-31.0 [facility] DallasHhqdpquOPBSWCRIVY8680-17-09 09:02:00 Test Item Value Reference Range Interpretation Comments MCHC (test code = MCHC) 35.0 32.0-36.0 [facility] DallasHtxebhfALVLDGMUFA4385-05-83 09:02:00 Test Item Value Reference Range Interpretation Comments RDW (test code = RDW) 13.3 11.5-14.5 [facility] DallasIbomtrvNBDIGHEKNW4498-15-15 09:02:00 Test Item Value Reference Range Interpretation Comments Platelet (test code = Platelet) 278 133-450 [facility] DallasClwqoirTIJYNXKHXX3423-50-21 09:02:00 Test Item Value Reference Range Interpretation Comments MPV (test code = MPV) 8.0 7.4-10.4 [facility] DallasNrmngozWSFHVPTCRY3065-83-49 09:02:00 Test Item Value Reference Range Interpretation Comments PT (test code = PT) 12.3 s 12.0-14.7 [facility] DallasEfnbggrZBPOBQEODD3682-48-36 09:02:00 Test Item Value Reference Range Interpretation Comments INR (test code = INR) 0.92 1 0.85-1.17 [place] [id number] 09:02:00 Test Item Value Reference Range Interpretation Comments PTT (test code = PTT) 25.8 s 22.9-35.8 [place] 949610-08-06 09:02:00 Test Item Value Reference Range Interpretation Comments RBC Morph (test code = Normal (06/23/20 4:02 AM) RBC Morph) [facility] DallasFnjeoyiWOXTFOTTGE0151-32-88 09:02:00 Test Item Value Reference Range Interpretation Comments Plt Morph (test code = Normal (06/23/20 4:02 AM) Plt Morph) [facility] DallasInxkyhhEOBNGJUBOS1020-74-55 09:02:00 Test Item Value Reference Range Interpretation Comments Segs (test code = Segs) 95.1 45.0-75.0 [facility] DallasKkseuujLYBATNSKIO2705-03-56 09:02:00 Test Item Value Reference Range Interpretation Comments Lymphocytes (test code = Lymphocytes) 3.9 20.0-40.0 [facility] DallasFuopqvmBCACIWVFOI4890-14-82 09:02:00 Test Item Value Reference Range Interpretation Comments Monocytes (test code = Monocytes) 0.6 2.0-12.0 [facility] DallasBgyhidsQUSWVXWNDQ6859-05-55 09:02:00 Test Item Value Reference Range Interpretation Comments Basophils (test code = 0.4 See_Comment [Aut omated message] The Basophils) system which ge nerated this result tra nsmitted reference range : <=1.0. The reference r aleshia was not used to int erpret this result as normal/abnormal . [facility] D[id number] 09:02:00 Test Item Value Reference Range Interpretation Comments Neutrophils # (test code = Neutrophils 11.6 1.5-8.1 #) [facility] DallasAaqvuuaUTRGQZZXBQ5159-91-34 09:02:00 Test Item Value Reference Range Interpretation Comments Lymphocytes # (test code = Lymphocytes 0.5 1.0-5.5 #) [facility] DallasHmzrqzjEGJIJCITYZ9692-08-13 09:02:00 Test Item Value Reference Range Interpretation Comments Monocytes # (test code 0.1 See_Comment [Aut omated message] The = Monocytes #) system which generated this result tra nsmitted reference range : <=0.8. The reference r aleshia was not used to int erpret this result as normal/abnormal . [facility] [id number] 09:02:00 Test Item Value Reference Range Interpretation Comments ABO/Rh (test code = ABO/Rh) O POS [facility] [id number] 09:02:00 Test Item Value Reference Range Interpretation Comments Antibody Scrn (test Negative (06/23/20 4:02 code = Antibody Scrn) AM) [facility]2020-08-06 09:02:00 Test Item Value Reference Range Interpretation Comments Glucose Lvl (test code = Glucose Lvl) 131 70-99 [place] 835380-08-06 09:02:00 Test Item Value Reference Range Interpretation Comments BUN (test code = BUN) 18 7-22 [place] 835380-08-06 09:02:00 Test Item Value Reference Range Interpretation Comments Creatinine Lvl (test code = Creatinine 1.11 0.50-1.40 Lvl) [place] 835380-08-06 09:02:00 Test Item Value Reference Range Interpretation Comments Sodium Lvl (test code = Sodium Lvl) 139 135-145 [place] 835380-08-06 09:02:00 Test Item Value Reference Range Interpretation Comments Potassium Lvl (test code = Potassium 4.6 3.5-5.1 Lvl) [place] 835380-08-06 09:02:00 Test Item Value Reference Range Interpretation Comments Chloride Lvl (test code = Chloride Lvl) 104 95-109 [place] 835380-08-06 09:02:00 Test Item Value Reference Range Interpretation Comments CO2 (test code = CO2) 29 24-32 [place] 835380-08-06 09:02:00 Test Item Value Reference Range Interpretation Comments Calcium Lvl (test code = Calcium Lvl) 8.7 8.5-10.5 [place] 835380-08-06 09:02:00 Test Item Value Reference Range Interpretation Comments Albumin Lvl (test code = Albumin Lvl) 3.8 3.5-5.0 [place] 835380-08-06 09:02:00 Test Item Value Reference Range Interpretation Comments ALANINE AMINOTRANSFERASE 17 See_Comment [A utomated message] (test code = ALANINE The sys tem which AMINOTRANSFERASE) generated this result transmitted ref erence range: <=65. Th e reference range was not used to int erpret this result as normal/abnormal . [place] 835380-08-06 09:02:00 Test Item Value Reference Range Interpretation Comments ASPARTATE TRANSAMINASE 13 See_Comment [Aut omated message] (test code = ASPARTATE The s ystem which TRANSAMINASE) generated this result transmitted ref erence range: <=37. Th e reference range was not used to interpr et this result as normal/abnormal . [place] 835380-08-06 09:02:00 Test Item Value Reference Range Interpretation Comments AGAP (test code = AGAP) 10.6 10.0-20.0 [place] [address]-08-06 09:02:00 Test Item Value Reference Range Interpretation Comments B/C Ratio (test code = B/C Ratio) 16 1 6-25 [place] [address]-08-06 09:02:00 Test Item Value Reference Range Interpretation Comments eGFR (test code = eGFR) 74 [place] 835380-08-06 09:02:00 Test Item Value Reference Range Interpretation Comments Total Protein (test code = Total 7.1 6.4-8.4 Protein) [place] [address]-08-06 09:02:00 Test Item Value Reference Range Interpretation Comments Alk Phos (test code = Alk Phos) 55 39-136 [place] 835380-08-06 09:02:00 Test Item Value Reference Range Interpretation Comments Bili Total (test code = Bili Total) 0.7 0.2-1.3 [place] [address]-08-06 09:02:00 Test Item Value Reference Range Interpretation Comments Globulin (test code = Globulin) 3.3 2.7-4.2 [place] 835380-08-06 09:02:00 Test Item Value Reference Range Interpretation Comments A/G Ratio (test code = A/G Ratio) 1.2 1 0.7-1.6 [place] [address]-08-06 09:02:00 Test Item Value Reference Range Interpretation Comments WBC X 10x3 (test code = WBC X 10x3) 12.2 3.7-10.4 [place] [address]-08-06 09:02:00 Test Item Value Reference Range Interpretation Comments RBC X 10x6 (test code = RBC X 10x6) 4.63 4.70-6.10 [place] [address]-08-06 09:02:00 Test Item Value Reference Range Interpretation Comments Hgb (test code = Hgb) 15.0 14.0-18.0 [place] [address]-08-06 09:02:00 Test Item Value Reference Range Interpretation Comments Hct (test code = Hct) 43.0 42.0-54.0 [facility]TYPLH1474-38-14 09:02:00 Test Item Value Reference Range Interpretation Comments MCV (test code = MCV) 92.8 80.0-94.0 [place] 949610-08-06 09:02:00 Test Item Value Reference Range Interpretation Comments MCH (test code = MCH) 32.5 pg 27.0-31.0 [facility]WgwwxguGXWAYFKEMU9091-61-80 09:02:00 Test Item Value Reference Range Interpretation Comments MCHC (test code = MCHC) 35.0 32.0-36.0 [facility] DallasYkqnesnNYNMIUWEFV1471-45-29 09:02:00 Test Item Value Reference Range Interpretation Comments RDW (test code = RDW) 13.3 11.5-14.5 [place] [address]-08-06 09:02:00 Test Item Value Reference Range Interpretation Comments Platelet (test code = Platelet) 278 133-450 [facility] DallasTxuxfihBOLYBBBFEY0633-58-53 09:02:00 Test Item Value Reference Range Interpretation Comments MPV (test code = MPV) 8.0 7.4-10.4 [facility] DallasIvfadevCPYIOEAEQM3345-74-10 09:02:00 Test Item Value Reference Range Interpretation Comments PT (test code = PT) 12.3 s 12.0-14.7 [facility] DallasAihpxupEJBUQLIBMN2498-81-19 09:02:00 Test Item Value Reference Range Interpretation Comments INR (test code = INR) 0.92 1 0.85-1.17 [facility] DallasXzxqmdiUFYQCDWSDO2289-24-28 09:02:00 Test Item Value Reference Range Interpretation Comments PTT (test code = PTT) 25.8 s 22.9-35.8 [place] [id number] 09:02:00 Test Item Value Reference Range Interpretation Comments RBC Morph (test code = Normal (06/23/20 4:02 AM) RBC Morph) [facility] DallasLcemkotVPZIHINIAU5141-54-84 09:02:00 Test Item Value Reference Range Interpretation Comments Plt Morph (test code = Normal (06/23/20 4:02 AM) Plt Morph) [facility] DallasNqflypfVXRMIXKAIT3468-45-69 09:02:00 Test Item Value Reference Range Interpretation Comments Segs (test code = Segs) 95.1 45.0-75.0 [facility]FS[facility]QXRQCE1010-51-52 09:02:00 Test Item Value Reference Range Interpretation Comments Lymphocytes (test code = Lymphocytes) 3.9 20.0-40.0 [facility]GsjwtpiKWBKKBDULS0415-05-16 09:02:00 Test Item Value Reference Range Interpretation Comments Monocytes (test code = Monocytes) 0.6 2.0-12.0 [facility]InhhzgdLTRHICECMI6900-51-82 09:02:00 Test Item Value Reference Range Interpretation Comments Basophils (test code = 0.4 See_Comment [Aut omated message] The Basophils) system which ge nerated this result tra nsmitted reference range : <=1.0. The reference r aleshia was not used to int erpret this result as normal/abnormal . [facility]KtamsvwBKNUMAXTPB9124-88-09 09:02:00 Test Item Value Reference Range Interpretation Comments Neutrophils # (test code = Neutrophils 11.6 1.5-8.1 #) [facility]NOT4095[facility]86-64 09:02:00 Test Item Value Reference Range Interpretation Comments Lymphocytes # (test code = Lymphocytes 0.5 1.0-5.5 #) [facility]IaxjwhuYAWSFYXJSN9878-09-06 09:02:00 Test Item Value Reference Range Interpretation Comments Monocytes # (test code 0.1 See_Comment [Aut omated message] The = Monocytes #) system which generated this result tra nsmitted reference range : <=0.8. The reference r aleshia was not used to int erpret this result as normal/abnormal . [facility] HospitalShynuedVDNVYODVBU8315-06-16 09:02:00 Test Item Value Reference Range Interpretation Comments INR (test code = INR) 0.92 1 0.85-1.17 [facility]GvsfozfZAVZYEFRQF4710-97-21 09:02:00 Test Item Value Reference Range Interpretation Comments PTT (test code = PTT) 25.8 s 22.9-35.8 [facility]BtnplksKQTYIIIDJO7928-97-66 09:02:00Normal (06/23/20 4:02 AM)[facility]roeCcvfblkCYAICIVFNS1151-55-95 09:02:00Normal (06/23/20 4:02 AM)[facility] TSEQWZCTMS5047-84-96 09:02:0095.1[facility] XbiveclJTWCWZLWVW1164-84-77 09:02:00 3.9[facility] EjgdpbwPMQIPWHTKI4252-39-08 09:02:000.6[facility] 2020-06-23 09:02:000.4[facility] KwxovifDJWVXRGQUY4466-40-35 09:02:0011.6[facility] AerkqsgELSVUPLPMC6959-60-24 09:02:000.5[facility] IqbtjtsMBMYVBIZEN3200-77-58 09:02:000.1[facility] JXUXXGJ7258-19-83 09:02:00Negative (06/23/20 4:02 AM)[facility]annCHE[facility] HKFCF1796-22-71 09:02:16427Wvuwlyir HermannCHEM XOALO1477-89-29 09:02:0018[facility]annCHE[facility] VZMXY4692-73-20 09:02:001.11 [facility] WYGVE7255-14-59 09:02:44840Xkefzylj HermannCHEM PANEL 2020-06-23 09:02:004.6[facility]annCHE[facility] ECPDP4631-29-04 09:02:03218Djhzkwes HermannCHEM GSDCX5173-21-17 09:02:0029[facility]annCHE[facility] VYULX8823-36-65 09:02:008.7[facility]annCHE[facility] JSPGU1343-16-20 09:02:003.8[facility]CHE[facility] BPUFB0036-26-54 09:02:0017[facility]annCHE[facility] JFZAB1128-69-00 09:02:0013 [facility] EACXM3385-65-55 09:02:0010.6[facility]annCHE[facility] PANEL 2020-06-23 09:02:00 Test Item Value Reference Range Interpretation Comments B/C Ratio (test code = B/C Ratio) 16 1 6-25 [facility] ZEMDC7283-17-62 09:02:0074[facility]annCHE[facility] PANEL 2020-06-23 09:02:007.1[facility]annCHE[facility] AGKOF8931-35-71 09:02:0055[facility]annCHE[facility] WXXVB3478-07-01 09:02:000.7[facility]annCHE[facility] QIUZW6735-70-75 09:02:003.3[facility]annCHE[facility] BXIPA9864-97-53 09:02:00 Test Item Value Reference Range Interpretation Comments A/G Ratio (test code = A/G Ratio) 1.2 1 0.7-1.6 [facility] ZhegngzZFZDAGTNET7777-32-89 09:02:0012.2[facility]MATOLOG[facility] 2020-06-23 09:02:004.63[facility] KfcrusaFTERAAXPBA3769-23-11 09:02:0015.0[facility] BzqnwxyFVWIEQJDLG4271-20-04 09:02:0043.0[facility] XaowdhhXOEELOBHJY8069-01-44 09:02:0092.8[facility] CiscfjjVSVOVNKKNT9614-78-59 09:02:00 Test Item Value Reference Range Interpretation Comments MCH (test code = MCH) 32.5 pg 27.0-31.0 [facility] TczffwgBMLSJKJNFM4638-98-91 09:02:0035.0[facility] 2020-06-23 09:02:0013.3[facility] GjtqyaiJBTQZNNAGN2001-14-95 09:02:78416Ykptkidz WwxrmpzYUTEMBYYAA8207-80-67 09:02:008.0[facility] AojsffbZTVMFBSEGL2031-04-84 09:02:00 Test Item Value Reference Range Interpretation Comments PT (test code = PT) 12.3 s 12.0-14.7 [facility] Notes Date/Time Note Provider Source 2020-06-25 EXAM: XR CHEST 1 VIEW [facility] 08:29:00-00:00 DATE: 06/25/2020 8:03 AM CDT Cente r INDICATION: - Bilateral apical ptx COMPARISON: Yesterday TECHNIQUE: AP chest. IMPRESSION: Tracheostomy tube in place. Stable cardiomediastinal silhouette. Redemonstration of subcutaneous emphysema in the bilateral lower neck and left chest wall. Stable pneumomediastinum. Redemonstration of s mall biapical pneumothoraces , unchanged. Mild bibasilar subsegmental atelectasis. Osseous structures are unchanged. CONCLUSION: Stable findings since prior chest radiograph. 2020-06-24 EXAM: XR CHEST 1 [facility]IEW [facility] 12:35:00-00:00 DATE: 06/24/2020 12:00 CDT Center INDICATION: - eval apical PTX COMPARISON: 06/24/2007: 18. TECHNIQUE: AP chest. FINDINGS: Lines, tubes and hardware: Tracheostomy device i n stable position. Lungs and pleura: Pulmonary vascularity is normal. The lungs are clear. The costophrenic sulci are sharp without effusion. Small biapical pneumothoraces redemonstrated. Heart and mediastinum: The heart size is normal. Persistent pneumomediastinum. Bones and soft tissues: No a cute osseous abnormality. Soft tissue gas noted along the left chest wall, bilateral pectoral muscles, and bilateral neck. IMPRESSION: 1. Small biapical pneumothoraces redemonstrated. 2. Similar pneumomediastinum. 3. Extensive soft tissue gas in the chest wall a nd neck . 2020-06-24 EXAM: XR CHEST 1 VIEW [facility] 07:16:53-00:00 DATE: 06/24/2020 6:07 CDT Center INDICATION: - reassess pneumo COMPARISON: Tracheostomy dev ice in stable position. Monitor leads overlie the patient. TECHNIQUE: AP chest. FINDINGS: Lines, tubes and hardware: T racheostomy appliance is noted with stable position. Lungs and pleura: Pulmonary vascularity is normal. The lungs are clear. The costophrenic sulci are sharp without effusion. Minimal biapical pneumothoraces Heart and mediastinum: The h eart size is normal. Mild pneumomediastinum, improved from prior examination. Bones and soft tissues: No a cute osseous abnormality. Soft tissue gas overlies the left chest wall and bilateral neck. IMPRESSION: 1. Mild pneumomediastinum, improved from prior e xamination. 2. Minimal biapical pneumothoraces. 3. Extensive soft tissue gas at the left chest wall and neck mildly improved from prior examination. 2020-06-23 EXAM: XR CHEST 1 VIEW [facility] 20:00:00-00:00 DATE: [facility]23[facility]2020 [facility]: - [facility] COMPARISON: 06/22/[address] [facility] at 1721 hours TECHNIQUE: AP chest FINDINGS: There is a new tra cheostomy tube above the kulwinder. There is diffuse subcutaneous emphysema of the neck and left chest wall. Bilateral pneumothorax and pneumomediastinum are better evaluated on CT from the same day at 172 1 hour. The cardiomediastinal silhouette is within normal limits for technique. The lungs are grossly clear. There is no pleural effusion. IMPRESSION: 1. New tracheostomy tube. 2. Diffuse subcutaneous emphysema of the neck an d the left chest wall. 3. Bilateral pneumothorax an d the pneumomediastinum are better evaluated on CT from the same day. 2020-06-23 EXAM: CT CHEST WITH CONTRAST [facility] 17:21:04-00:00 DATE: 06/23/2020 10:53 CDT Center INDICATION: - For evaluation of malignancy ADDITIONAL INFORMATION: '54 y/o M no known medical history, sore throat for years, dyspnea for 3-4 weeks, hoarse voice for 4 years. Sore throat is worse when he eats something Outside hospital CT soft tissue, likely malignant cancer' COMPARISON: Chest radiograph 06/22/2020, CT neck soft tissues June 22 and 2019 TECHNIQUE: Volumetric CT of the chest is acquired following intravenous administration of contrast. Axial, coronal and sagittal images are provided. Axial MIP reconstructions are created at the acquisition workstation. IV contrast: 75 mL Omnipaque 350 DLP (mGy-cm): 601 FINDINGS: Platen Press Operator: Noncontributory. Lines, tubes and hardware: A tracheostomy tube is noted with tip terminating 3.9 cm above the kulwinder. Lower neck: The visible port ions of the lower neck and thyroid are unremarkable. Axilla: Scattered subcentimeter axillary lymph n odes. Airway: Debris is present wi thin the trachea around the tracheostomy tube and at the level of the kulwinder. Lungs and pleura: Small to m oderate bilateral pneumothoraces are noted. No pleural effusion. Bilateral dependent subsegmental atelectasis. Mild centrilobular emphysematous changes, predominantly in the upper lobes. Mild interlobul ar septal thickening is noted, predominantly in the lower lobes. There is a 3 mm pulmonary nodule at the apex of the left upper lobe (series 4, image 33). Mediastinum, cary and intrat horacic lymph nodes: Extensive pneumomediastinum is noted. No enlarged mediastinal lymph nodes are identified. Heart, pericardium and great vessels: The main pulmonary artery measures 2.6 cm. The ascending aorta measures 3.1 cm. The heart is normal in size. No coronary artery calcifications are identified. No ca lcifications of the aorta ar e identified. Trace pericardial fluid may be physiologic. Upper abdomen: A 1.4 cm hypo density is noted at the superior pole of the left kidney, likely representing a cyst. Vicarious excretion of contrast is present within the gallbladder. Gas-filled loops of b owel are partially visualize d. A 0.6 cm hyperdensity is present within the stomach which may represent a radiopaque foreign body that has been swallowed. Bones: There is a healing ri ght 10th lateral rib fracture with callus formation. Mild degenerative changes of the spine with anterior osteophyte formation. Soft tissues: Extensive subc utaneous emphysema is noted throughout the lower neck, paraspinal muscles, and upper chest extending into the bilateral chest wall soft tissues. IMPRESSION: 1. Interval placement of tra cheostomy tube which terminates in the midthoracic trachea. 2. Small to moderate bilateral pneumothoraces. 3. Extensive pneumomediastin um and subcutaneous emphysema extending from the lower neck to the upper chest, paraspinal muscles, and bilateral chest wall soft tissues. 4. Mild upper lobe predominant centrilobular emp hysema. 5. There is a 3 mm pulmonary nodule at the apex of the left upper lobe. Given concern for primary malignancy of the neck, if malignancy is confirmed, recommend follow-up per oncologic protocol. Findings #1-[address] Ameya moreira at 1735 hours on 06/23/2020. [place] SECTION: Chest 2020-06-23 EXAM: CT OF THE NECK WITH CONTRAST [facility] 06:01:00-00:00 DATE: 06/23/2020 4:48 AM T Cente r INDICATION: Cough, dyspnea, voice changes; outside study submitted for 2nd opinion COMPARISON: CT soft tissue n melissa performed at [facility] dated 06/22/2020 TECHNIQUE: Axial images of the neck wer e obtained after intravenous contrast. Reformatted images in the sagittal and coronal plane were included. IV contrast: 100 mL Omnipaque 350 Total DLP: 218 mGy*cm FINDINGS: There is no discrete mass in the nasopharynx and oral cavity/oropharynx. There is diffuse circumferen tial soft tissue thickening producing narrowing of the glottic and supraglottic airway. At the level of the glottis, there is sclerosis of the right arytenoid cartilage and a pparent bone erosion of the cricoid cartilage. There is masslike soft tissue fullness in the right subglottic region extending to the level of the glottis. The mobile portion of the ep iglottis and preepiglottic fat are unremarkable. The piriform sinus and aryepiglottic folds are unremarkable. The thyroid gland is unremar kable. The visualized segments of the esophagus show no discrete mass. The salivary glands including the paroti d and submandibular glands are normal. Imaged portions of the paran aliya sinuses and mastoid air cells are clear. Visualized portions of the brain and orbits are unremarkable. No necrotic or morphological ly abnormal or pathologically enlarged lymph nodes are identified in the neck. No aggressive bony changes are identified. Paraseptal and centrilobular emphysematous changes are present in the visible upper lungs. IMPRESSION: 1. 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 There is sclerosis of the arytenoid and suggestion of erosion of the cricoid cartilage. Direct visualization is recommended. 2. Diffuse, circumferential soft tissue thickening causing markedly narrowing of the supraglottic airway. Findings were communicated t o Dr. Colin Ballard of the ENT team on 06/23/2020 at around 1432 hours, by the undersigned. Preliminary Report: 1. The epiglottis appears normal. 2. No inflammation or loculated fluid collection s present. 3. Vocal fold thickening and calcification likely represents a chronic process. [place] SECTION: Neuro
[2023-05-05 15:45] VITALS: BP 105/69; TEMP 98.2; O2SAT 96
== END 2023-05-05 15:13 | disposition home or self-care (01) ==
LOC: ER 14:49
DX: Z43.1 Encounter for attention to gastrostomy (principal)
CPT/HCPCS: 99283